=== PATIENT | male | born 1975 | race Caucasian/White ===

== ENCOUNTER 2022-07-16 03:55 | Inpatient (IN) ==
[2022-07-16] MEDS ORDERED: 0.9 % SODIUM CHLORIDE 1,000 ML IV ONE ×2 (04:03→07:39)
[2022-07-16] MEDS ORDERED: KETOROLAC 30 MG/ML VIAL IV ONE (04:08)
[2022-07-16 04:16] LABS: POC Calcium, Ionized 1.09 (1.16-1.32); POC Creatinine 1.3 (0.6-1.2); POC Potassium 3.7 (3.3-5.1)
[2022-07-16 05:10] LABS: Basophils % (Auto) 0.3 % (0.0-2.0); Eosinophils # (Auto) 0 K/mcL (0.00-0.70); Eosinophils % (Auto) 0 % (0.0-7.0); Hematocrit 40.9 % (40.1-51.0); Hemoglobin 13.8 g/dL (13.7-17.5); Lymphocytes % (Auto) 1.4 % (15.5-49.0); Mean Cell Volume 87.4 fL (80.0-100.0); Mean Corpuscular HGB Conc 33.7 g/dL (31.0-36.0); Mean Platelet Volume 10.1 fL (8.8-12.5); Monocytes # (Auto) 1.13 K/mcL (0.10-0.90); Monocytes % (Auto) 3.1 % (1.0-12.0); Neutrophils % (Auto) 93.4 % (38.0-78.0); Platelet Count 276 K/mcL (140-440); RBC 4.68 M/mcL (4.63-6.08); Red Cell Distribution Width 13.8 % (11.5-14.5); WBC 36.7 K/mcL (4.5-11.0)
[2022-07-16] MEDS ORDERED: cefTRIAXone 2 GM in DEXTROSE 5% IN WATER 50 ML IV ONE (05:10)
--- NOTE | 2022-07-16 05:26 | Emergency Department Note ---
Skin/Abscess/FB HPI General Chief complaint: Wound/Laceration Stated complaint: Fever, Cellulitis, penile bleeding Time Seen by Provider: 07/16/22 04:03 Source: patient and EMS Mode of arrival: EMS Limitations: no limitations History of Present Illness HPI Narrative: Narrative: Patient presents ED via EMS with complaints of weakness over the last week. Patient reports that he got bit by a spider left lower extremity turned red and the redness has spread. States it hurts and is warm. He states he been having chills and feeling well. He also states that he started peeing blood yesterday and has not really peed since then. Patient denies nausea, vomiting, hematemesis, melena, hematochezia, dysuria, cardiac chest pain, shortness of breath, hemoptysis. Patient admits to smoking meth regularly with his last intake being a day ago. He states he also smokes marijuana daily with his last usage being a couple hours prior to arrival to the ED. He is also a current every day smoker. Patient is homeless. Patient denies any other alleviating or aggravating factors. Related Data Previous Rx's Medication Instructions Recorded levetiracetam 500 mg tablet 500 mg PO BID #60 tabs 12/03/21 (Keppra) Allergies Allergy/AdvReac Type Severity Reaction Status Date / Time bee venom protein (honey bee) Allergy Anaphylaxis Verified 07/16/22 04:06 titanium Allergy Anaphylaxis Verified 07/16/22 04:06 Review of Systems ROS ROS Narrative: Narrative: All systems ED: reviewed and negative except as stated. [facility] Narrative Patient History Narrative: Narrative: Medical/Surgical/Family History All Active Problems (Updated 07/16/22 @ 06:42 by Jay Rashid DO) Seizure (Acute) Sepsis (Acute) Cellulitis of left leg (Acute) Acute dehydration (Acute) Hematuria (Acute) Social History Smoking Status: Current every day smoker Exam Narrative Narrative: Narrative: General Limitations: no limitations General appearance: Present other (ill appearing); Absent in distress Eye Eye: Present PERRL and EOMI ENT ENT: Present normal oropharynx and mucous membranes dry Neck Neck: Present normal inspection; Absent meningismus Chest Chest: Present normal inspection; Absent tenderness Respiratory Respiratory: Present normal lung sounds bilaterally; Absent respiratory distress Cardiovascular Cardiovascular: Present normal rhythm and tachycardia Adbominal Abdominal: Present soft; Absent tenderness Extremities Extremities: Present normal capillary refill Expanded Lower Extremity Leg image: 1. Erythema, tenderness to palpation, warmth with no obvious fluctuance or discharge Back Back: Present CVA tenderness (R) and CVA tenderness (L) Neurological Neurological: Present alert and oriented X3 Psychiatric Psychiatric: Present normal affect and normal mood Skin Skin: Present warm (WNL) and intact Course Course Course Narrative: Patient was evaluated for complaints of generalized weakness and left lower extremity redness. Physical exam consistent with cellulitis to left lower extremity. There is no fluctuant or drainage appreciable. There is concerns for osteomyelitis on x-rays obtained of the left tib-fib with image reviewed myself with no obvious bony abnormality. Patient was tachycardic, febrile and tachypneic upon arrival. EKG was obtained and shows sinus tachycardia with no signs of ST elevation. Labs were obtained and patient had extremely high white cell count with leukocytosis of 36. Lactic acid was within normal limits. Pro calcitonin is elevated. Patient does meet sepsis criteria with cellulitis, fever, leukocytosis, tachycardia and tachypnea. Patient was bolused IV fluids and given IV Toradol. His temperature improved and his heart rate also improved. Patient also complained of peeing blood she was concerned for possible kidney stone. CT has been obtained and is currently pending. Patient states that he had not peed in 1 day so bladder scan was obtained showed about 250 mL of urine. Patient's urine sample was just ricco blood with clots so hematuria Philippe catheter catheter was placed. After my assessment is a review of labs and x-rays I believe patient should be admitted as he does meet sepsis criteria with ricco hematuria. Patient was initially hesitant to be admitted to the hospital and was considering leaving [facility] [place]. After further discussion patient has agreed to be admitted. Patient will be signed out to Dr. Ruggiero to determine final disposition once CT results come back. Dr. Ruggiero will need to discuss case with urology and hospitalist service. Reevaluation(s) Reevaluation #1: Patient remains hemodynamically stable. No new complaints at this time. Time: 05:10 Vital Signs Vital signs: Vital Signs Temperature 102.9 F H 07/16/22 04:01 Pulse Rate 110 H 07/16/22 04:01 Respiratory Rate 28 H 07/16/22 04:01 Blood Pressure 147/103 07/16/22 04:01 Pulse Oximetry (%) 96 07/16/22 04:01 Oxygen Delivery Method Room Air 07/16/22 04:01 Oxygen Flow Rate (L/min) 0 07/16/22 04:01 Temperature 99.4 F H 07/16/22 06:24 Pulse Rate 108 H 07/16/22 06:24 Respiratory Rate 15 07/16/22 06:24 Blood Pressure 154/101 07/16/22 06:18 Pulse Oximetry (%) 96 07/16/22 06:24 Oxygen Delivery Method Room Air 07/16/22 04:01 Oxygen Flow Rate (L/min) 0 07/16/22 04:01 MDM MDM Narrative Medical decision making narrative: Narrative: Sepsis Sepsis Identified: Yes Time Zero: 05 Differential Diagnosis Differential Diagnosis: Septic, cellulitis, kidney stone Medical Records Medical records reviewed: Yes I reviewed the patient's medical records. Lab Data Lab results reviewed: Yes I reviewed the patient's lab results. 07/16/22 04:20 Labs: Lab Results 07/16/22 07/16/22 07/16/22 Range/Units 04:10 04:10 04:20 WBC 36.7 H* (4.5-11.0) K/mcL RBC 4.68 (4.63-6.08) M/mcL Hgb 13.8 (13.7-17.5) g/dL Hct 40.9 (40.1-51.0) % POC Hct 42.0 (41-55) MCV 87.4 (80.0-100.0) fL MCH 29.5 (26.0-34.0) pg MCHC 33.7 (31.0-36.0) g/dL RDW 13.8 (11.5-14.5) % Plt Count 276 (140-440) K/mcL MPV 10.1 (8.8-12.5) fL Immature Gran % (Auto) 1.8 H (0.0-0.5) % Neut % (Auto) 93.4 H (38.0-78.0) % Lymph % (Auto) 1.4 L (15.5-49.0) % [place] % (Auto) 3.1 (1.0-12.0) % Eos % (Auto) 0 (0.0-7.0) % Baso % (Auto) 0.3 (0.0-2.0) % Lymph # (Auto) 0.50 L (1.50-4.80) K/mcL [place] # (Auto) 1.13 H (0.10-0.90) K/mcL Eos # (Auto) 0 (0.00-0.70) K/mcL Baso # (Auto) 0.10 (0.00-0.30) K/mcL Immature Gran # 0.67 H (0.00-0.05) K/mcl Absolute Neutrophils 34.32 H (1.80-8.00) K/mcL POC VBG pH 7.45 H (7.32-7.42) POC VBG pCO2 at Temp 40.5 L (41-51) POC VBG pO2 23 L (25-40) POC VBG HCO3 28.1 H (24-28) POC VBG Total CO2 29.0 (25-29) POC Venous O2 Sat 42.0 (40-70) POC VBG Base Excess 4.0 H* (-2-2) VBG Lactic Acid 1.8 (0.5-2) POC Sodium 134 (133-145) POC Potassium 3.7 (3.3-5.1) POC Chloride 95 L (96-108) POC Total CO2 27.0 (22-30) POC BUN 21 H (6-20) POC Creatinine 1.3 H (0.6-1.2) POC Glucose 119 H (70-105) POC WB Ioniz Calcium 1.09 L (1.16-1.32) Total Bilirubin (0.1-1.0) mg/dL Direct Bilirubin (<0.3) mg/dL AST (<40) U/L ALT (<40) U/L Alkaline Phosphatase (39-117) U/L Total Protein (5.9-8.4) gm/dL Albumin (3.2-5.2) gm/dL Globulin (2.2-3.7) gm/dL Procalcitonin (<0.10) ng/mL 07/16/22 07/16/22 Range/Units 04:20 04:20 WBC (4.5-11.0) K/mcL RBC (4.63-6.08) M/mcL Hgb (13.7-17.5) g/dL Hct (40.1-51.0) % POC Hct (41-55) MCV (80.0-100.0) fL MCH (26.0-34.0) pg MCHC (31.0-36.0) g/dL RDW (11.5-14.5) % Plt Count (140-440) K/mcL MPV (8.8-12.5) fL Immature Gran % (Auto) (0.0-0.5) % Neut % (Auto) (38.0-78.0) % Lymph % (Auto) (15.5-49.0) % [place] % (Auto) (1.0-12.0) % Eos % (Auto) (0.0-7.0) % Baso % (Auto) (0.0-2.0) % Lymph # (Auto) (1.50-4.80) K/mcL [place] # (Auto) (0.10-0.90) K/mcL Eos # (Auto) (0.00-0.70) K/mcL Baso # (Auto) (0.00-0.30) K/mcL Immature Gran # (0.00-0.05) K/mcl Absolute Neutrophils (1.80-8.00) K/mcL POC VBG pH (7.32-7.42) POC VBG pCO2 at Temp (41-51) POC VBG pO2 (25-40) POC VBG HCO3 (24-28) POC VBG Total CO2 (25-29) POC Venous O2 Sat (40-70) POC VBG Base Excess (-2-2) VBG Lactic Acid (0.5-2) POC Sodium (133-145) POC Potassium (3.3-5.1) POC Chloride (96-108) POC Total CO2 (22-30) POC BUN (6-20) POC Creatinine (0.6-1.2) POC Glucose (70-105) POC WB Ioniz Calcium (1.16-1.32) Total Bilirubin 1.1 H (0.1-1.0) mg/dL Direct Bilirubin 0.2 (<0.3) mg/dL AST 14 (<40) U/L ALT 9 (<40) U/L Alkaline Phosphatase 105 (39-117) U/L Total Protein 7.5 (5.9-8.4) gm/dL Albumin 3.9 (3.2-5.2) gm/dL Globulin 3.6 (2.2-3.7) gm/dL Procalcitonin 0.68 H (<0.10) ng/mL Radiology Data Radiology results reviewed: Yes I reviewed the patient's radiology results. Radiology results narrative: X-ray of the left lower extremity obtained with image reviewed myself with no signs of osteomyelitis EKG Data EKG #1: EKG attestation: Yes I reviewed and interpreted this EKG. EKG shows normal: sinus rhythm Rate: tachycardia Rhythm: PVC's [place]/QRS: normal Heart block present: None ST segment elevation in: None ST segment depression in: None QTc: normal QRS morphology: Present normal Interpretation: no acute changes Core Measures AMI Core Measures Followed: Yes Discharge Plan Patient/Caregiver Discharge Instructions Pt seen by SCOREKEEPER/PA only: No Clinical Impression: Sepsis, Cellulitis of left leg, Acute dehydration, Hematuria Patient Disposition: Still a Patient Condition: Fair Prescriptions: No Action levetiracetam [Keppra] 500 mg tablet 500 mg PO BID Qty: 60 0RF
[2022-07-16 05:30] LABS: ALT/SGPT 9 U/L (<40); AST/SGOT 14 U/L (<40); Albumin 3.9 gm/dL (3.2-5.2); Alkaline Phosphatase 105 U/L (39-117); Bilirubin,Direct 0.2 mg/dL (<0.3); Bilirubin,Total 1.1 mg/dL (0.1-1.0); Globulin 3.6 gm/dL (2.2-3.7)
[2022-07-16 07:12] LABS: Appearance,Urine Cloudy (Clear); Bacteria,Urine 0 /hpf (0); Bilirubin,Urine Negative (Negative); Color,Urine Red; Culture Indicated,Urine No; Glucose,Urine (UA) Negative (Negative); Ketones,Urine Negative (Negative); Leukocyte Esterase,Urine Negative /uL (Negative); Nitrate,Urine Negative (Negative); Protein,Urine 30 mg/dL (Negative); Urine RBC > 100 /hpf (0-3); Urine Squamous Epithelial Cell 1 /hpf (0-4); Urine WBC 6 /hpf (0-4)
--- NOTE | 2022-07-16 07:32 | Emergency Department Note ---
Course Course Course Narrative: The patient is a 47-year-old male with a history of homelessness, methamphetamine abuse, tobacco abuse, and seizures who presents to the ED with gross hematuria found to be septic with left lower extremity cellulitis. Patient believes that he was bitten by a bug about 2 weeks ago and states that over the last 2 and half days he has had progressive redness in the left lower extremity. He also reports fevers and chills. 2 days ago he also developed hematuria and difficulty urinating. He denies any IV drug use and states that he only smokes or snorts his methamphetamines. Last methamphetamine use was a day ago. Temperature elevated to 102.9 and patient tachycardic on arrival. Blood pressures have been elevated. On exam, patient does have a large area of erythema and induration in the left lower extremity concerning for cellulitis. There is purulent appearing drainage from the wound though no areas of fluctuance to indicate an underlying abscess. WBC 36. Prolactin elevated. Lactic acid WNL. Patient given 2 L IV fluids and 2 g Rocephin. Heart rate has improved. A Philippe catheter was placed. UA with greater than 100 RBCs. Urine drug screen positive for marijuana and amphetamines. Creatinine 1.3. BUN 21. Radiographs of the tibia/fibula show no evidence of underlying osteoarthritis. Abdomen/pelvis CT shows left nonobstructive renal calculi and a right adrenal 4 cm adenoma. Case discussed with Dr. Rubin who accept patient for admission. A wound culture was obtained. Patient was given 1750 mg vancomycin IV. Reevaluation(s) Reevaluation #1: Patient denies any abdominal pain. Approximately 250 mL pink urine appreciated in the Philippe bag. Heart rate has come down to 105. Blood pressure 169/96. Time: 08:00 Consultations Consultation #1: Dr. Rubin, hospitalist, accepts patient for admission and request patient be given vancomycin. 1750 mg vancomycin IV ordered. Time: 08:30 Vital Signs Vital signs: Vital Signs Temperature 102.9 F H 07/16/22 04:01 Pulse Rate 110 H 07/16/22 04:01 Respiratory Rate 28 H 07/16/22 04:01 Blood Pressure 147/103 07/16/22 04:01 Pulse Oximetry (%) 96 07/16/22 04:01 Oxygen Delivery Method Room Air 07/16/22 04:01 Oxygen Flow Rate (L/min) 0 07/16/22 04:01 Temperature 99.4 F H 07/16/22 06:24 Pulse Rate 102 H 07/16/22 07:16 Respiratory Rate 29 H 07/16/22 07:16 Blood Pressure 162/102 07/16/22 07:16 Pulse Oximetry (%) 99 07/16/22 07:16 Oxygen Delivery Method Room Air 07/16/22 04:01 Oxygen Flow Rate (L/min) 0 07/16/22 04:01 MDM MDM Narrative Medical decision making narrative: Narrative: Sepsis Sepsis Identified: Yes Time Zero: 0600 Differential Diagnosis Differential Diagnosis: Sepsis, cellulitis, osteomyelitis, ureteral stone, bladder cancer Medical Records Medical records reviewed: Yes I reviewed the patient's medical records. Lab Data Lab results reviewed: Yes I reviewed the patient's lab results. 07/16/22 04:20 Labs: Lab Results 07/16/22 07/16/22 07/16/22 Range/Units 04:10 04:10 04:20 WBC 36.7 H* (4.5-11.0) K/mcL RBC 4.68 (4.63-6.08) M/mcL Hgb 13.8 (13.7-17.5) g/dL Hct 40.9 (40.1-51.0) % POC Hct 42.0 (41-55) MCV 87.4 (80.0-100.0) fL MCH 29.5 (26.0-34.0) pg MCHC 33.7 (31.0-36.0) g/dL RDW 13.8 (11.5-14.5) % Plt Count 276 (140-440) K/mcL MPV 10.1 (8.8-12.5) fL Immature Gran % (Auto) 1.8 H (0.0-0.5) % Neut % (Auto) 93.4 H (38.0-78.0) % Lymph % (Auto) 1.4 L (15.5-49.0) % [place] % (Auto) 3.1 (1.0-12.0) % Eos % (Auto) 0 (0.0-7.0) % Baso % (Auto) 0.3 (0.0-2.0) % Lymph # (Auto) 0.50 L (1.50-4.80) K/mcL [place] # (Auto) 1.13 H (0.10-0.90) K/mcL Eos # (Auto) 0 (0.00-0.70) K/mcL Baso # (Auto) 0.10 (0.00-0.30) K/mcL Immature Gran # 0.67 H (0.00-0.05) K/mcl Absolute Neutrophils 34.32 H (1.80-8.00) K/mcL POC VBG pH 7.45 H (7.32-7.42) POC VBG pCO2 at Temp 40.5 L (41-51) POC VBG pO2 23 L (25-40) POC VBG HCO3 28.1 H (24-28) POC VBG Total CO2 29.0 (25-29) POC Venous O2 Sat 42.0 (40-70) POC VBG Base Excess 4.0 H* (-2-2) VBG Lactic Acid 1.8 (0.5-2) POC Sodium 134 (133-145) POC Potassium 3.7 (3.3-5.1) POC Chloride 95 L (96-108) POC Total CO2 27.0 (22-30) POC BUN 21 H (6-20) POC Creatinine 1.3 H (0.6-1.2) POC Glucose 119 H (70-105) POC WB Ioniz Calcium 1.09 L (1.16-1.32) Total Bilirubin (0.1-1.0) mg/dL Direct Bilirubin (<0.3) mg/dL AST (<40) U/L ALT (<40) U/L Alkaline Phosphatase (39-117) U/L Total Protein (5.9-8.4) gm/dL Albumin (3.2-5.2) gm/dL Globulin (2.2-3.7) gm/dL Procalcitonin (<0.10) ng/mL Urine Color Urine Appearance (Clear) Urine pH (5.0-9.0) Ur Specific [place] (1.000-1.035) Urine Protein (Negative) mg/dL Urine Glucose (UA) (Negative) mg/dL Urine Ketones (Negative) mg/dL Urine Occult Blood (Negative) mg/dL Urine Nitrate (Negative) Urine Bilirubin (Negative) mg/dL Urine Urobilinogen mg/dL Ur Leukocyte Esterase (Negative) /uL Urine RBC (0-3) /hpf Urine WBC (0-4) /hpf Ur Squamous Epith Cells (0-4) /hpf Urine Bacteria (0) /hpf Ur Culture Indicated? Urine Opiates Screen Ur Opiates Confirm Ur Oxycodone Screen U Oxycod/Oxymor Confirm Urine Methadone Screen Ur Methadone Confirm Ur Barbiturates Screen Ur Barbiturate Confirm Ur Phencyclidine Scrn Urine PCP Confirm Ur Amphetamines Screen U Benzodiazepines Scrn Ur Benzodiazepine, Qnt Urine Cocaine Screen Urine Cocaine Confirm U Marijuana (THC) Screen 07/16/22 07/16/22 07/16/22 Range/Units 04:20 04:20 06:07 WBC (4.5-11.0) K/mcL RBC (4.63-6.08) M/mcL Hgb (13.7-17.5) g/dL Hct (40.1-51.0) % POC Hct (41-55) MCV (80.0-100.0) fL MCH (26.0-34.0) pg MCHC (31.0-36.0) g/dL RDW (11.5-14.5) % Plt Count (140-440) K/mcL MPV (8.8-12.5) fL Immature Gran % (Auto) (0.0-0.5) % Neut % (Auto) (38.0-78.0) % Lymph % (Auto) (15.5-49.0) % [place] % (Auto) (1.0-12.0) % Eos % (Auto) (0.0-7.0) % Baso % (Auto) (0.0-2.0) % Lymph # (Auto) (1.50-4.80) K/mcL [place] # (Auto) (0.10-0.90) K/mcL Eos # (Auto) (0.00-0.70) K/mcL Baso # (Auto) (0.00-0.30) K/mcL Immature Gran # (0.00-0.05) K/mcl Absolute Neutrophils (1.80-8.00) K/mcL POC VBG pH (7.32-7.42) POC VBG pCO2 at Temp (41-51) POC VBG pO2 (25-40) POC VBG HCO3 (24-28) POC VBG Total CO2 (25-29) POC Venous O2 Sat (40-70) POC VBG Base Excess (-2-2) VBG Lactic Acid (0.5-2) POC Sodium (133-145) POC Potassium (3.3-5.1) POC Chloride (96-108) POC Total CO2 (22-30) POC BUN (6-20) POC Creatinine (0.6-1.2) POC Glucose (70-105) POC WB Ioniz Calcium (1.16-1.32) Total Bilirubin 1.1 H (0.1-1.0) mg/dL Direct Bilirubin 0.2 (<0.3) mg/dL AST 14 (<40) U/L ALT 9 (<40) U/L Alkaline Phosphatase 105 (39-117) U/L Total Protein 7.5 (5.9-8.4) gm/dL Albumin 3.9 (3.2-5.2) gm/dL Globulin 3.6 (2.2-3.7) gm/dL Procalcitonin 0.68 H (<0.10) ng/mL Urine Color Red Urine Appearance Cloudy A (Clear) Urine pH 7.0 (5.0-9.0) Ur Specific [place] 1.020 (1.000-1.035) Urine Protein 30 A (Negative) mg/dL Urine Glucose (UA) Negative (Negative) mg/dL Urine Ketones Negative (Negative) mg/dL Urine Occult Blood 0.20 (Negative) mg/dL Urine Nitrate Negative (Negative) Urine Bilirubin Negative (Negative) mg/dL Urine Urobilinogen 2.0 A mg/dL Ur Leukocyte Esterase Negative (Negative) /uL Urine RBC > 100 H (0-3) /hpf Urine WBC 6 H (0-4) /hpf Ur Squamous Epith Cells 1 (0-4) /hpf Urine Bacteria 0 (0) /hpf Ur Culture Indicated? No Urine Opiates Screen Ur Opiates Confirm Ur Oxycodone Screen U Oxycod/Oxymor Confirm Urine Methadone Screen Ur Methadone Confirm Ur Barbiturates Screen Ur Barbiturate Confirm Ur Phencyclidine Scrn Urine PCP Confirm Ur Amphetamines Screen U Benzodiazepines Scrn Ur Benzodiazepine, Qnt Urine Cocaine Screen Urine Cocaine Confirm U Marijuana (THC) Screen 07/16/22 Range/Units 06:08 WBC (4.5-11.0) K/mcL RBC (4.63-6.08) M/mcL Hgb (13.7-17.5) g/dL Hct (40.1-51.0) % POC Hct (41-55) MCV (80.0-100.0) fL MCH (26.0-34.0) pg MCHC (31.0-36.0) g/dL RDW (11.5-14.5) % Plt Count (140-440) K/mcL MPV (8.8-12.5) fL Immature Gran % (Auto) (0.0-0.5) % Neut % (Auto) (38.0-78.0) % Lymph % (Auto) (15.5-49.0) % [place] % (Auto) (1.0-12.0) % Eos % (Auto) (0.0-7.0) % Baso % (Auto) (0.0-2.0) % Lymph # (Auto) (1.50-4.80) K/mcL [place] # (Auto) (0.10-0.90) K/mcL Eos # (Auto) (0.00-0.70) K/mcL Baso # (Auto) (0.00-0.30) K/mcL Immature Gran # (0.00-0.05) K/mcl Absolute Neutrophils (1.80-8.00) K/mcL POC VBG pH (7.32-7.42) POC VBG pCO2 at Temp (41-51) POC VBG pO2 (25-40) POC VBG HCO3 (24-28) POC VBG Total CO2 (25-29) POC Venous O2 Sat (40-70) POC VBG Base Excess (-2-2) VBG Lactic Acid (0.5-2) POC Sodium (133-145) POC Potassium (3.3-5.1) POC Chloride (96-108) POC Total CO2 (22-30) POC BUN (6-20) POC Creatinine (0.6-1.2) POC Glucose (70-105) POC WB Ioniz Calcium (1.16-1.32) Total Bilirubin (0.1-1.0) mg/dL Direct Bilirubin (<0.3) mg/dL AST (<40) U/L ALT (<40) U/L Alkaline Phosphatase (39-117) U/L Total Protein (5.9-8.4) gm/dL Albumin (3.2-5.2) gm/dL Globulin (2.2-3.7) gm/dL Procalcitonin (<0.10) ng/mL Urine Color Urine Appearance (Clear) Urine pH (5.0-9.0) Ur Specific [place] (1.000-1.035) Urine Protein (Negative) mg/dL Urine Glucose (UA) (Negative) mg/dL Urine Ketones (Negative) mg/dL Urine Occult Blood (Negative) mg/dL Urine Nitrate (Negative) Urine Bilirubin (Negative) mg/dL Urine Urobilinogen mg/dL Ur Leukocyte Esterase (Negative) /uL Urine RBC (0-3) /hpf Urine WBC (0-4) /hpf Ur Squamous Epith Cells (0-4) /hpf Urine Bacteria (0) /hpf Ur Culture Indicated? Urine Opiates Screen None detected Ur Opiates Confirm TNP Ur Oxycodone Screen None detected U Oxycod/Oxymor Confirm TNP Urine Methadone Screen None detected Ur Methadone Confirm TNP Ur Barbiturates Screen None detected Ur Barbiturate Confirm TNP Ur Phencyclidine Scrn None detected Urine PCP Confirm TNP Ur Amphetamines Screen Suspect positive A U Benzodiazepines Scrn None detected Ur Benzodiazepine, Qnt TNP Urine Cocaine Screen None detected Urine Cocaine Confirm TNP U Marijuana (THC) Screen Suspect positive A Radiology Data Radiology results reviewed: Yes I reviewed the patient's radiology results. Radiology results narrative: Left tib-fib radiographs show no evidence of osteomyelitis. CT abdomen/pelvis without IV contrast shows nonobstructive left renal calculi and a right adrenal 4 cm adenoma. Core Measures AMI Core Measures Followed: Yes ([place] body weight used for fluid bolus for sepsis) Discharge Plan Patient/Caregiver Discharge Instructions Pt seen by LICENSED CLINICAL PSYCHOLOGIST/PA only: No Clinical Impression: Sepsis, Cellulitis of left leg, Acute dehydration, Hematuria Patient Disposition: Xfer As Inpt ([facility]) Condition: Fair Prescriptions: No Action levetiracetam [Keppra] 500 mg tablet 500 mg PO BID Qty: 60 0RF
[2022-07-16 07:36] LABS: Amphetamine Screen,Urine Suspect positive; Barbiturate Screen,Urine None detected; Benzodiazepines Screen,Urine None detected; Cannabinoid Screen,Urine Suspect Positive; Cocaine Screen,Urine None detected; Opiate Screen,Urine None detected; Oxycodone, Urine Screen None detected; Phencyclidine Screen,Urine None detected
--- NOTE | 2022-07-16 08:07 | XRay Report ---
HISTORY: Left leg cellulitis FINDINGS: There is mild generalized subcutaneous edema throughout the leg. There are few phleboliths in the carter and there are arterial calcifications in the arteries and the mid calf. The bones are normally mineralized. There is no evidence of osteomyelitis. No fracture or destructive bone lesion are present. The knee and ankle joints are normal. IMPRESSION: Soft tissue inflammation and no bone lesion Interpreted and Authenticated by: Laurent Steele 07/16/22
--- NOTE | 2022-07-16 08:18 | Cat Scan Report ---
History: Hematuria and fever left leg cellulitis TECHNIQUE: The abdomen was imaged without contrast in axial plane at 2.5 mm intervals from above the diaphragm through the symphysis pubis. Sagittal and coronal reformats were created. The radiation exposure was limited using dose reduction technology. FINDINGS: There is a band of dependent atelectasis posteriorly in the right lung base. Evaluation of the abdominal organs without contrast is somewhat limited. The liver is normal in size and homogeneous. There may be mild fatty infiltration. The gallbladder is absent. Bile ducts are nondilated. Spleen is normal in size and contains a couple small calcified granulomata. No abnormality is detected in the pancreas. There is a well-circumscribed 3.4 x 4.3 cm lipid-containing mass in the right adrenal. This is probably a myelolipoma. The left adrenal is normal. The right kidney is normal in size shape and contour. There are three nonobstructing calyceal stones in the left kidney. The largest is in the middle one third and measures 3.5 x 9.5 mm. No hydronephrosis is present in either kidney. There is a focal area of stranding of the perirenal fat along the lateral margin of the lower pole of the left kidney. The underlying parenchyma appears normal on this nonenhanced study. Milder and more ill-defined perinephric stranding is seen laterally adjacent to the lower third of the right kidney. No perinephric hematoma is present. Ureters are decompressed. Urinary bladder is only partially filled and appears normal. Moderate amount of atherosclerotic plaque is present along the wall of normal caliber abdominal aorta and iliac arteries. This is greater than one normally sees in a 47-year-old. The bowel pattern is normal. Appendix is noninflamed. No adenopathy or ascites are present. Severe disc space narrowing is present at L3-4 and L4-5 and there is moderately severe narrowing at L5-S1. 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 Mild spinal canal stenosis is present at L3-4 and L4-5. IMPRESSION: Three nonobstructing stones in the left kidney. Perinephric stranding around both kidneys. This is nonspecific and may be chronic scar or focal inflammation. 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
[2022-07-16] MEDS ORDERED: VANCOMYCIN 1,750 MG in 0.9 % SODIUM CHLORIDE 500 ML IV ONE (08:31)
--- NOTE | 2022-07-16 11:11 | Internal Med History&Physical ---
HPI History of Present Illness Patient information: Note initiated : 07/16/22 at 11:00 am Service Date, if different from initiated Date: [] Patient: Jabier Hubbard a 47 y/o M admitted on 07/16/22 for Fever, Cellulitis, penile bleeding. Chief Complaint: [] History of present illness: Mr. Hubbard is a 47 year old M Here with left leg redness and swelling. fever and hematuria concerned he may have kidney stones. Patient recently moved down from [place] to help with his daughter's probation. 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 His girlfriend told him he had to make a decision between her and her family and his daughter so he decided to stay in [place]. Patient states about 3 weeks ago he received a spider bite to the left lateral lower leg. He said it was improving however he says he noticed that after he went to the [facility] health and welfare office to get food stamps and when he came home sometime he noticed that he was increasingly red and swollen and painful. He also complains of productive cough of thick yellow sputum over the past 2 to 3 days. Has a chronic cough no change. He is also complained of fevers and chills and nausea but no vomiting. Patient has not been on his blood pressure medications or Keppra for the past 3 months because he ran out and does not have a primary care doctor anymore Patient uses methamphetamine, smokes and denies IV use. Says it helps with his chronic pain. In the ED he was evaluated in the did not appear to be any fluctuance or drainage, abscess. X-ray showed no osteo. Patient was tachycardic and tachypneic and febrile. CT abdomen pelvis showed nonobstructing kidney stones on the left. Showed some perinephric stranding around both kidneys that was nonspecific with a differential of chronic scar versus inflammation. Patient does not have any flank pain and UA unconcerning for infection. In the ED they placed a Philippe and immediately received blood and blood clots into the bag which is now clearing up. Procalcitonin elevated at 0.7 Patient started on Vanco and Rocephin in the ED. Review of Systems: Pertinent positive as above. Denies headache/fever/chills/nausea/vomiting/chest or abdominal pain/cough/dyspnea/diarrhea. Remaining 10 point review of system reviewed negative PHYSICAL EXAM General: Alert, Awake, No acute Distress, obese Eyes/N/T: EOMI, no scleral icterus, PERRL, MM Head/Neck: neck supple, full ROM, normocephalic atraumatic CV: RRR, No murmurs, normal s1/s2 Pulm: Clear b/l, no wheezing/rhonchi/rales, no respiratory distress Abd: soft, nontender, +BS x4 Ext: no clubbing/cyanosis/edema to RLE, LLE with erythema/edema/TTP around Neuro: Alert, CN 2-12 grossly intact, no focal deficits, moves all extremities, , sensations intact b/l upper/lower Psychiatric: Skin: warm/dry, normal color PFSH PFSH All Active Problems (Updated 07/16/22 @ 06:42 by Jay Rashid DO) Seizure (Acute) Sepsis (Acute) Cellulitis of left leg (Acute) Acute dehydration (Acute) Hematuria (Acute) Social History smoking status: Current every day smoker MEDS/ALLERGIES Home Medications and Allergies Home Medications Medication Instructions Recorded Confirmed Type amlodipine 5 mg tablet 5 mg PO QDAY 07/16/22 07/16/22 History levetiracetam 750 mg tablet 1,500 mg PO BID 07/16/22 07/16/22 History lisinopril 10 mg tablet 10 mg PO QDAY 07/16/22 07/16/22 History Allergies Allergy/AdvReac Type Severity Reaction Status Date / Time bee venom protein (honey bee) Allergy Anaphylaxis Verified 07/16/22 04:06 titanium Allergy Anaphylaxis Verified 07/16/22 04:06 EXAM Constitutional Vitals: Temp Pulse Resp BP Pulse Ox O2 Del Method O2 Flow Rate 99.4 F H 110 H 21 171/106 94 Room Air 0 07/16/22 10:53 07/16/22 10:53 07/16/22 10:53 07/16/22 10:53 07/16/22 10:53 07/16/22 04:01 07/16/22 04:01 DATA Data Completed and Pending Labs: Labs from last 24 hours 07/16/22 07/16/22 07/16/22 06:08 06:07 04:20 WBC RBC Hgb Hct POC Hct MCV MCH MCHC RDW Plt Count MPV Immature Gran % (Auto) Neut % (Auto) Lymph % (Auto) Murray % (Auto) Eos % (Auto) Baso % (Auto) Lymph # (Auto) Murray # (Auto) Eos # (Auto) Baso # (Auto) Immature Gran # Absolute Neutrophils POC VBG pH POC VBG pCO2 at Temp POC VBG pO2 POC VBG HCO3 POC VBG Total CO2 POC Venous O2 Sat POC VBG Base Excess VBG Lactic Acid POC Sodium POC Potassium POC Chloride POC Total CO2 POC BUN POC Creatinine POC Glucose POC WB Ioniz Calcium Total Bilirubin Direct Bilirubin AST ALT Alkaline Phosphatase Total Protein Albumin Globulin Procalcitonin 0.68 H Urine Color Red Urine Appearance Cloudy A Urine pH 7.0 Ur Specific [place] 1.020 Urine Protein 30 A Urine Glucose (UA) Negative Urine Ketones Negative Urine Occult Blood 0.20 Urine Nitrate Negative Urine Bilirubin Negative Urine Urobilinogen 2.0 A Ur Leukocyte Esterase Negative Urine RBC > 100 H Urine WBC 6 H Ur Squamous Epith Cells 1 Urine Bacteria 0 Ur Culture Indicated? No Urine Opiates Screen None detected Ur Opiates Confirm TNP Ur Oxycodone Screen None detected U Oxycod/Oxymor Confirm TNP Urine Methadone Screen None detected Ur Methadone Confirm TNP Ur Barbiturates Screen None detected Ur Barbiturate Confirm TNP Ur Phencyclidine Scrn None detected Urine PCP Confirm TNP Ur Amphetamines Screen Suspect positive A U Amphetamines Confirm Pending U Benzodiazepines Scrn None detected Ur Benzodiazepine, Qnt TNP Urine Cocaine Screen None detected Urine Cocaine Confirm TNP U Cannabinoids Confirm Pending U Marijuana (THC) Screen Suspect positive A 07/16/22 07/16/22 07/16/22 04:20 04:20 04:10 WBC 36.7 H* RBC 4.68 Hgb 13.8 Hct 40.9 POC Hct 42.0 MCV 87.4 MCH 29.5 MCHC 33.7 RDW 13.8 Plt Count 276 MPV 10.1 Immature Gran % (Auto) 1.8 H Neut % (Auto) 93.4 H Lymph % (Auto) 1.4 L Murray % (Auto) 3.1 Eos % (Auto) 0 Baso % (Auto) 0.3 Lymph # (Auto) 0.50 L Murray # (Auto) 1.13 H Eos # (Auto) 0 Baso # (Auto) 0.10 Immature Gran # 0.67 H Absolute Neutrophils 34.32 H POC VBG pH POC VBG pCO2 at Temp POC VBG pO2 POC VBG HCO3 POC VBG Total CO2 POC Venous O2 Sat POC VBG Base Excess VBG Lactic Acid POC Sodium 134 POC Potassium 3.7 POC Chloride 95 L POC Total CO2 27.0 POC BUN 21 H POC Creatinine 1.3 H POC Glucose 119 H POC WB Ioniz Calcium 1.09 L Total Bilirubin 1.1 H Direct Bilirubin 0.2 AST 14 ALT 9 Alkaline Phosphatase 105 Total Protein 7.5 Albumin 3.9 Globulin 3.6 Procalcitonin Urine Color Urine Appearance Urine pH Ur Specific [place] Urine Protein Urine Glucose (UA) Urine Ketones Urine Occult Blood Urine Nitrate Urine Bilirubin Urine Urobilinogen Ur Leukocyte Esterase Urine RBC Urine WBC Ur Squamous Epith Cells Urine Bacteria Ur Culture Indicated? Urine Opiates Screen Ur Opiates Confirm Ur Oxycodone Screen U Oxycod/Oxymor Confirm Urine Methadone Screen Ur Methadone Confirm Ur Barbiturates Screen Ur Barbiturate Confirm Ur Phencyclidine Scrn Urine PCP Confirm Ur Amphetamines Screen U Amphetamines Confirm U Benzodiazepines Scrn Ur Benzodiazepine, Qnt Urine Cocaine Screen Urine Cocaine Confirm U Cannabinoids Confirm U Marijuana (THC) Screen 07/16/22 04:10 WBC RBC Hgb Hct POC Hct MCV MCH MCHC RDW Plt Count MPV Immature Gran % (Auto) Neut % (Auto) Lymph % (Auto) Murray % (Auto) Eos % (Auto) Baso % (Auto) Lymph # (Auto) Murray # (Auto) Eos # (Auto) Baso # (Auto) Immature Gran # Absolute Neutrophils POC VBG pH 7.45 H POC VBG pCO2 at Temp 40.5 L POC VBG pO2 23 L POC VBG HCO3 28.1 H POC VBG Total CO2 29.0 POC Venous O2 Sat 42.0 POC VBG Base Excess 4.0 H* VBG Lactic Acid 1.8 POC Sodium POC Potassium POC Chloride POC Total CO2 POC BUN POC Creatinine POC Glucose POC WB Ioniz Calcium Total Bilirubin Direct Bilirubin AST ALT Alkaline Phosphatase Total Protein Albumin Globulin Procalcitonin Urine Color Urine Appearance Urine pH Ur Specific [place] Urine Protein Urine Glucose (UA) Urine Ketones Urine Occult Blood Urine Nitrate Urine Bilirubin Urine Urobilinogen Ur Leukocyte Esterase Urine RBC Urine WBC Ur Squamous Epith Cells Urine Bacteria Ur Culture Indicated? Urine Opiates Screen Ur Opiates Confirm Ur Oxycodone Screen U Oxycod/Oxymor Confirm Urine Methadone Screen Ur Methadone Confirm Ur Barbiturates Screen Ur Barbiturate Confirm Ur Phencyclidine Scrn Urine PCP Confirm Ur Amphetamines Screen U Amphetamines Confirm U Benzodiazepines Scrn Ur Benzodiazepine, Qnt Urine Cocaine Screen Urine Cocaine Confirm U Cannabinoids Confirm U Marijuana (THC) Screen A/P Narrative A/P Narrative: A: *LLE cellulitis: *Sepsis: 2/2 above -Febrile/leukocytosis/tachypnea/tachycardia *ELISE: *Gross hematuria: 2/2 kidney stones likely *HTN: Elevated on admit. Has been off his amlodipine and lisinopril for 3 months *Substance abuse (Meth): *Tobacco abuse: *Sz d/o: on keppra, continue *Obesity: BMI 36, lifestyle modifications *Homeless: *Chronic back pain: P: -IV Vanc/Rocephin, pending BC/WC, pending mrsa screen -Outline cellulitis area to monitor -IVF -Monitor renal function/UOP -Monitor hematuria and H&H -Continue home Norvasc, hold Lisinopril for elise, prn IV meds -Obtain chest x-ray for new productive cough - -Smoking cessation counseling >3 minutes -Substance abuse cessation counseling -CM for placement needs -ppx: SCDs (hold chemical given hematuria) Time Spent With Patient Time: Total time spent is greater than 50% in coordination of care (as documented) at patient's floor/unit and/or counseling patient: Initial: Total time with patient: 75 - 90 minutes QUALITY Stroke Symptom Onset Unknown: No
[2022-07-16] MEDS ORDERED: LABETALOL 5 MG/ML ML IV PRN (11:33)
[2022-07-16] MEDS ORDERED: POLYETHYLENE GLYCOL 3350 17 GM PACKET PO PRN (11:34)
[2022-07-16] MEDS ORDERED: POTASSIUM CHLORIDE 20 MEQ TABLET PO PRN ×2 (11:34)
[2022-07-16] MEDS ORDERED: MAGNESIUM SULFATE 2 GM/50 ML BAG IV PRN (11:34)
[2022-07-16] MEDS ORDERED: IPRATROPIUM/ALBUTEROL 3 ML AMPUL.NEB NEB PRN (11:34)
[2022-07-16] MEDS ORDERED: SENNOSIDES 1 TABLET PO PRN (11:34)
[2022-07-16] MEDS ORDERED: POTASSIUM CHLORIDE 40 MEQ in DEXTROSE 5% IN WATER 500 ML IV PRN (11:34)
[2022-07-16] MEDS ORDERED: ACETAMINOPHEN 325 MG TABLET PO PRN (11:34)
[2022-07-16] MEDS ORDERED: levETIRAcetam 500 MG TABLET PO SCH (12:00)
[2022-07-16] MEDS: amLODIPine 5 MG TABLET PO SCH (12:07)
[2022-07-16] MEDS: CLINDAMYCIN IN 0.9 % SOD CHLOR 600 MG/50 ML BAG IV SCH ×2 (12:07→21:32)
[2022-07-16] MEDS: 0.9 % SODIUM CHLORIDE 1,000 ML IV SCH ×2 (12:10→23:24)
[2022-07-16] MEDS: ONDANSETRON 4 MG/2 ML VIAL IV PRN (12:48)
[2022-07-16] MEDS: morphine 4 MG/ML VIAL IV PRN (12:48)
[2022-07-16] MEDS: 0.9 % SODIUM CHLORIDE 10 ML SYRINGE IV SCH ×2 (13:45→21:23)
[2022-07-16] MEDS: hydrALAZINE 20 MG/ML VIAL IV PRN (15:44)
--- NOTE | 2022-07-16 15:50 | XRay Report ---
HISTORY: Fever, new productive cough FINDINGS: The lungs are clear and well expanded without evidence of pneumonia. On the PA view there are symmetric prominent nipple shadows overlying the lower thorax. The heart size, pulmonary vasculature, mediastinum, prabhakar, pleura and bones are normal. IMPRESSION: Normal chest. Interpreted and Authenticated by: Laurent Steele 07/16/22
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
[2022-07-16] MEDS: HYDROcodone/APAP 5/325MG TABLET PO PRN (19:24)
[2022-07-16] MEDS: levETIRAcetam 500 MG TABLET PO SCH (21:22)
[2022-07-16] MEDS: DOCUSATE SODIUM 100 MG CAPSULE PO SCH (21:23)
[2022-07-17] MEDS: CLINDAMYCIN IN 0.9 % SOD CHLOR 600 MG/50 ML BAG IV SCH (05:37)
[2022-07-17] MEDS: 0.9 % SODIUM CHLORIDE 10 ML SYRINGE IV SCH ×3 (05:38→20:25)
[2022-07-17 06:31] LABS: Basophils # (Auto) 0.06 K/mcL (0.00-0.30); Basophils % (Auto) 0.3 % (0.0-2.0); Eosinophils # (Auto) 0.02 K/mcL (0.00-0.70); Eosinophils % (Auto) 0.1 % (0.0-7.0); Hemoglobin 12.6 g/dL (13.7-17.5); Lymphocytes # (Auto) 0.83 K/mcL (1.50-4.80); Mean Cell Volume 90.7 fL (80.0-100.0); Mean Corpuscular HGB Conc 33.2 g/dL (31.0-36.0); Mean Platelet Volume 10.4 fL (8.8-12.5); Monocytes # (Auto) 0.75 K/mcL (0.10-0.90); Monocytes % (Auto) 3.6 % (1.0-12.0); Neutrophils % (Auto) 90.9 % (38.0-78.0); Platelet Count 201 K/mcL (140-440); RBC 4.19 M/mcL (4.63-6.08); Red Cell Distribution Width 14.2 % (11.5-14.5); WBC 20.7 K/mcL (4.5-11.0)
[2022-07-17 06:40] LABS: ALT/SGPT 9 U/L (<40); AST/SGOT 11 U/L (<40); Albumin 3.2 gm/dL (3.2-5.2); Alkaline Phosphatase 92 U/L (39-117); Bilirubin,Direct 0.4 mg/dL (<0.3); Bilirubin,Total 0.9 mg/dL (0.1-1.0); Blood Urea Nitrogen 24 mg/dL (6-20); Calcium 8.2 mg/dL (8.6-10.4); Carbon Dioxide 24 mmol/L (22-30); Chloride 93 mmol/L (96-108); Globulin 3.3 gm/dL (2.2-3.7); Glomerular Filtration Rate 65; Glucose 91 mg/dL (70-105); Lactate Dehydrogenase 152 U/L (135-225); Phosphorous 1.9 mg/dL (2.5-4.5); Triglycerides 51 mg/dL (<150); Uric Acid 7.1 mg/dL (2.5-8.0)
[2022-07-17] MEDS ORDERED: NEUTRA PHOS 1 PACKET PO SCH (07:34)
--- NOTE | 2022-07-17 07:38 | Internal Med Progress Note ---
SUBJECTIVE Subjective Patient information: Note initiated : 07/17/22 at 7:28 am Service Date, if different from initiated Date: [] Patient: Jabier Hubbard a 47 y/o M admitted on 07/16/22 for Fever, Cellulitis, penile bleeding. Chief Complaint: [] Interval history: History of present illness: Mr. Hubbard is a 47 year old M Here with left leg redness and swelling. fever and hematuria concerned he may have kidney stones. Patient recently moved down from [place] to help with his daughter's probation. 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 His girlfriend told him he had to make a decision between her and her family and his daughter so he decided to stay in [place]. Patient states about 3 weeks ago he received a spider bite to the left lateral lower leg. He said it was improving however he says he noticed that after he went to the [facility] health and welfare office to get food stamps and when he came home sometime he noticed that he was increasingly red and swollen and painful. He also complains of productive cough of thick yellow sputum over the past 2 to 3 days. Has a chronic cough no change. He is also complained of fevers and chills and nausea but no vomiting. Patient has not been on his blood pressure medications or Keppra for the past 3 months because he ran out and does not have a primary care doctor anymore Patient uses methamphetamine, smokes and denies IV use. Says it helps with his chronic pain. In the ED he was evaluated in the did not appear to be any fluctuance or drainage, abscess. X-ray showed no osteo. Patient was tachycardic and tachypneic and febrile. CT abdomen pelvis showed nonobstructing kidney stones on the left. Showed some perinephric stranding around both kidneys that was nonspecific with a differential of chronic scar versus inflammation. Patient does not have any flank pain and UA unconcerning for infection. In the ED they placed a Philippe and immediately received blood and blood clots into the bag which is now clearing up. Procalcitonin elevated at 0.7 Patient started on Vanco and Rocephin in the ED. 07/17 Patient drowsy. Complaining of back pain and leg pain. One of the blood cultures are positive for gram-positive cocci in clusters in anaerobic bottle of set. Leukocytosis still high but improving. Hyponatremia present. BUN and creatinine 24/1.3. Hypophosphatemia and hypomagnesemia. will try heat pad for back. Review of Systems: Pertinent positive as above. Denies headache/fever/chills/nausea/vomiting/chest or abdominal pain/cough/dyspnea/diarrhea. PHYSICAL EXAM General: Awake, No acute Distress, obese Eyes/N/T: EOMI, no scleral icterus, Head/Neck: neck supple, full ROM, CV: RRR, 2/6SM, Pulm: Clear b/l, no wheezing/rhonchi/rales, no respiratory distress Abd: soft, nontender, +BS x4 Ext: no clubbing/cyanosis/edema to RLE, LLE witherythema/edema/TTP around lower lateral leg circumferentially - no real change Neuro: drowsy, no focal deficits, moves all extremities, , sensations intact b/l upper/lower Psychiatric: Skin: warm/dry, normal color Constitutional Vitals: Vital Signs Temp Pulse Resp BP Pulse Ox O2 Del Method O2 Flow Rate 99.1 F H 91 H 20 129/87 95 Room Air 0 07/17/22 03:50 07/17/22 03:50 07/17/22 03:50 07/17/22 03:50 07/17/22 03:50 07/17/22 03:50 07/16/22 04:01 Period Temp Pulse Resp BP Sys/Long Pulse Ox O2 Del Method O2 Flow Rate Last 24 Hr 99.0 F-100.9 F 91-110 18-30 129-174/81-108 94-99 Room Air-Room Air Intake and Output 07/16/22 07/17/22 07/17/22 19:59 03:59 11:59 Intake Total 650 1530 50 Output Total 200 525 Balance 450 1005 50 Weight 118.898 kg Intake & Output: Intake & Output 07/16/22 07/17/22 07/17/22 19:59 03:59 11:59 Intake Total 650 1530 50 Output Total 200 525 Balance 450 1005 50 Weight 118.898 kg Intake: IV 50 1050 50 Sodium Chloride 0.9% 1,000 ml @ 1000 100 mls/hr IV .Q10H [facility] Rx#: [id number] Oral 600 480 Output: Urine Catheter Amount 200 525 Other: Urine Appearance Clear Uretheral (Philippe) Clear Urine Color Dark Nahomy Uretheral (Philippe) Dark Yellow OBJ DATA Labs 07/17/22 05:25 07/17/22 05:25 Labs: Abnormal Lab Results 07/17/22 07/17/22 07/17/22 05:25 05:25 05:25 WBC 20.7 H RBC 4.19 L Hgb 12.6 L Hct 38.0 L Immature Gran % (Auto) 1.1 H Neut % (Auto) 90.9 H Lymph % (Auto) 4.0 L Lymph # (Auto) 0.83 L [place] # (Auto) Immature Gran # 0.23 H Absolute Neutrophils 18.82 H POC VBG pH POC VBG pCO2 at Temp POC VBG pO2 POC VBG HCO3 POC VBG Base Excess Sodium 127 L POC Chloride Chloride 93 L POC BUN BUN 24 H Creatinine 1.3 H POC Creatinine POC Glucose Calcium 8.2 L POC WB Ioniz Calcium Phosphorus 1.9 L Magnesium 1.4 L Total Bilirubin Direct Bilirubin 0.4 H Procalcitonin 1.10 H Urine Appearance Urine Protein Urine Urobilinogen Urine RBC Urine WBC Ur Amphetamines Screen U Marijuana (THC) Screen 07/16/22 07/16/22 07/16/22 06:08 06:07 04:20 WBC RBC Hgb Hct Immature Gran % (Auto) Neut % (Auto) Lymph % (Auto) Lymph # (Auto) [place] # (Auto) Immature Gran # Absolute Neutrophils POC VBG pH POC VBG pCO2 at Temp POC VBG pO2 POC VBG HCO3 POC VBG Base Excess Sodium POC Chloride Chloride POC BUN BUN Creatinine POC Creatinine POC Glucose Calcium POC WB Ioniz Calcium Phosphorus Magnesium Total Bilirubin Direct Bilirubin Procalcitonin 0.68 H Urine Appearance Cloudy A Urine Protein 30 A Urine Urobilinogen 2.0 A Urine RBC > 100 H Urine WBC 6 H Ur Amphetamines Screen Suspect positive A U Marijuana (THC) Screen Suspect positive A 07/16/22 07/16/22 07/16/22 04:20 04:20 04:10 WBC 36.7 H* RBC Hgb Hct Immature Gran % (Auto) 1.8 H Neut % (Auto) 93.4 H Lymph % (Auto) 1.4 L Lymph # (Auto) 0.50 L [place] # (Auto) 1.13 H Immature Gran # 0.67 H Absolute Neutrophils 34.32 H POC VBG pH POC VBG pCO2 at Temp POC VBG pO2 POC VBG HCO3 POC VBG Base Excess Sodium POC Chloride 95 L Chloride POC BUN 21 H BUN Creatinine POC Creatinine 1.3 H POC Glucose 119 H Calcium POC WB Ioniz Calcium 1.09 L Phosphorus Magnesium Total Bilirubin 1.1 H Direct Bilirubin Procalcitonin Urine Appearance Urine Protein Urine Urobilinogen Urine RBC Urine WBC Ur Amphetamines Screen U Marijuana (THC) Screen 07/16/22 04:10 WBC RBC Hgb Hct Immature Gran % (Auto) Neut % (Auto) Lymph % (Auto) Lymph # (Auto) [place] # (Auto) Immature Gran # Absolute Neutrophils POC VBG pH 7.45 H POC VBG pCO2 at Temp 40.5 L POC VBG pO2 23 L POC VBG HCO3 28.1 H POC VBG Base Excess 4.0 H* Sodium POC Chloride Chloride POC BUN BUN Creatinine POC Creatinine POC Glucose Calcium POC WB Ioniz Calcium Phosphorus Magnesium Total Bilirubin Direct Bilirubin Procalcitonin Urine Appearance Urine Protein Urine Urobilinogen Urine RBC Urine WBC Ur Amphetamines Screen U Marijuana (THC) Screen Meds: Medications Acetaminophen (Acetaminophen 325 Mg Tablet) 650 mg PO Q6HP PRN; Protocol PRN Reason: Per Pain Protocol/Fever > 101 Last Admin: 07/16/22 23:32 Dose: 650 mg Hydrocodone Bitart/Acetaminophen (Hydrocodone/Apap 5/325mg Tablet) 1 tab PO Q4HP PRN PRN Reason: PAIN LEVEL 3-6 Last Admin: 07/16/22 19:24 Dose: 1 tab Albuterol/Ipratropium (Ipratropium/Albuterol 3 Ml Ampul.Neb) 3 ml NEB Q4HP PRN PRN Reason: Shortness Of Breath Amlodipine Besylate (Amlodipine 5 Mg Tablet) 5 mg PO QDAY [facility] Last Admin: 07/16/22 12:07 Dose: 5 mg Docusate Sodium (Docusate Sodium 100 Mg Capsule) 100 mg PO BID [facility] Last Admin: 07/16/22 21:23 Dose: 100 mg Hydralazine HCl (Hydralazine 20 Mg/Ml Vial) 0 mg IV Q2HP PRN PRN Reason: Hypertension Last Admin: 07/16/22 15:44 Dose: 10 mg Potassium Chloride 40 meq/ (Dextrose) 520 mls @ 130 mls/hr IV UD PRN PRN Reason: Potassium < 3 Magnesium Sulfate (Magnesium Sulfate) 2 gm in 50 mls @ 50 mls/hr IV UD PRN PRN Reason: Magnesium </= 1.6 Sodium Chloride (Sodium Chloride 0.9%) 1,000 mls @ 100 mls/hr IV .Q10H [facility] Stop: 07/17/22 07:44 Last Admin: 07/16/22 23:24 Dose: 100 mls/hr Ceftriaxone Sodium 2 gm/ (Dextrose) 50 mls @ 100 mls/hr IV Q24H [facility]; Protocol CLINDAMYCIN IN 0.9 % SOD CHLOR (Clindamycin 600 Mg/50 Ml-Ns) 600 mg in 50 mls @ 100 mls/hr IV Q8H [facility] Stop: 07/18/22 06:29 Last Infusion: 07/17/22 06:07 Dose: Infused Labetalol HCl (Labetalol 5 Mg/Ml Ml) 0 mg IV Q2HP PRN PRN Reason: Hypertension Levetiracetam (Levetiracetam 500 Mg Tablet) 1,500 mg PO BID [facility] Last Admin: 07/16/22 21:22 Dose: 1,500 mg Morphine Sulfate (Morphine 4 Mg/Ml Vial) 0 mg IV Q3HP PRN PRN Reason: Pain Last Admin: 07/16/22 12:48 Dose: 3 mg Ondansetron HCl (Ondansetron 4 Mg/2 Ml Vial) 4 mg IV Q4HP PRN PRN Reason: Nausea And Vomiting Last Admin: 07/16/22 12:48 Dose: 4 mg Polyethylene Glycol (Polyethylene Glycol 3350 17 Gm Packet) 17 gm PO DAILYP PRN PRN Reason: Constipation Potassium Chloride (Potassium Chloride 20 Meq Tablet) 40 meq PO UD PRN PRN Reason: Potssium is 3-3.5 Potassium Chloride (Potassium Chloride 20 Meq Tablet) 40 meq PO UD PRN PRN Reason: Potassium < 3 Senna (Sennosides 1 Tablet) 2 tab PO DAILYP PRN PRN Reason: Constipation Sodium Chloride (0.9 % Sodium Chloride 10 Ml Syringe) 10 ml IV Q8 [facility] Last Admin: 07/17/22 05:38 Dose: 10 ml A/P Narrative A/P Narrative: A: *LLE cellulitis: *Bacteremia(GPC in clusters): *Sepsis: 2/2 above -Febrile o/n, leukocytosis/tachypnea/tachycardia slowly improving - *ERNIE (unknown baseline): cr 1.3 *Gross hematuria: 2/2 kidney stones likely *HTN: Elevated on admit. Has been off his amlodipine and lisinopril for 3 months *Electrolyte disorder (hypophosphatemia/ hypomagnesemia /hyponatremia): *Substance abuse (Meth): *Tobacco abuse: *Sz d/o: on keppra, continue *Obesity: BMI 36, lifestyle modifications *Homeless: *Chronic back pain: P: -IV Vanc/zosyn, pending BC/WC, pending mrsa screen -Outline cellulitis area to monitor -IVF d/c -Monitor renal function/UOP -Monitor hematuria and H&H -f/u pct, elevated, CT leg pending -echo pending, repeat BC in AM -Continue home Norvasc, hold Lisinopril for ernie, prn IV meds -Obtain chest x-ray for new productive cough -Trend and replace electrolytes as needed, follow-up sodium -Smoking cessation counseling -Substance abuse cessation counseling -CM for placement needs -ppx: SCDs cant be placed because of suicide ideation a few weeks ago, pt not ambulating d/t pain, start heparin if hematuria resolved Time Spent With Patient Time: Total time spent is greater than 50% in coordination of care (as documented) at patient's floor/unit and/or counseling patient: Subsequent: Total time with patient: 50 - 65 Minutes QUALITY Stroke Symptom Onset Unknown: No VTE Deep Vein Thrombosis/Pulmonary Embolism Present on Admission: No
[2022-07-17] MEDS: levETIRAcetam 500 MG TABLET PO SCH ×2 (08:32→20:23)
[2022-07-17] MEDS: PHOSPHORUS 250 MG TABLET PO SCH ×4 (08:32→20:24)
[2022-07-17] MEDS: amLODIPine 5 MG TABLET PO SCH (08:32)
[2022-07-17] MEDS: DOCUSATE SODIUM 100 MG CAPSULE PO SCH ×2 (08:32→20:22)
[2022-07-17] MEDS: HYDROcodone/APAP 5/325MG TABLET PO PRN ×2 (08:32→20:22)
[2022-07-17] MEDS ORDERED: cefTRIAXone 2 GM in DEXTROSE 5% IN WATER 50 ML IV SCH (09:00)
[2022-07-17] MEDS ORDERED: VANCOMYCIN PER PHARMACY IV SCH (09:14)
[2022-07-17] MEDS: PIPERACILLIN SODIUM/TAZOBACTAM 3.375 GM in DEXTROSE 5% IN WATER 50 ML IV SCH ×3 (09:51→17:17)
[2022-07-17] MEDS: VANCOMYCIN 1,500 MG in 0.9 % SODIUM CHLORIDE 500 ML IV SCH ×2 (10:27→22:15)
[2022-07-17] MEDS: HEPARIN 5,000 UNIT/ML VIAL SQ SCH ×2 (10:33→20:23)
--- NOTE | 2022-07-17 16:17 | EKG ---
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 Measurements Intervals [place] Rate: 107 P: 68 GA: 170 QRS: -8 QRSD: 99 T: 17 QT: 340 QTc: 454 Interpretive Statements Sinus tachycardia Ventricular premature complex ANTERIOR INFARCT, OLD Electronically Signed On 07-17-2022 16:17:22 PDT by Gregg Steele M.D. /store/[email or web address]/[id number]
[2022-07-18] MEDS: PIPERACILLIN SODIUM/TAZOBACTAM 3.375 GM in DEXTROSE 5% IN WATER 50 ML IV SCH ×5 (00:11→23:43)
[2022-07-18] MEDS: HYDROcodone/APAP 5/325MG TABLET PO PRN ×3 (02:59→20:52)
[2022-07-18] MEDS: 0.9 % SODIUM CHLORIDE 10 ML SYRINGE IV SCH ×3 (06:05→20:54)
[2022-07-18 06:20] LABS: Basophils # (Auto) 0.06 K/mcL (0.00-0.30); Basophils % (Auto) 0.4 % (0.0-2.0); Eosinophils # (Auto) 0.07 K/mcL (0.00-0.70); Eosinophils % (Auto) 0.5 % (0.0-7.0); Hematocrit 34.6 % (40.1-51.0); Hemoglobin 11.6 g/dL (13.7-17.5); Lymphocytes # (Auto) 0.97 K/mcL (1.50-4.80); Lymphocytes % (Auto) 7.2 % (15.5-49.0); Mean Cell Volume 89.4 fL (80.0-100.0); Mean Corpuscular HGB Conc 33.5 g/dL (31.0-36.0); Mean Platelet Volume 10.5 fL (8.8-12.5); Monocytes # (Auto) 0.91 K/mcL (0.10-0.90); Monocytes % (Auto) 6.8 % (1.0-12.0); Neutrophils % (Auto) 84.7 % (38.0-78.0); Platelet Count 182 K/mcL (140-440); RBC 3.87 M/mcL (4.63-6.08); WBC 13.4 K/mcL (4.5-11.0)
[2022-07-18 06:49] LABS: ALT/SGPT 6 U/L (<40); AST/SGOT 10 U/L (<40); Albumin 2.8 gm/dL (3.2-5.2); Albumin/Globulin Ratio 0.9 (1.0-2.3); Alkaline Phosphatase 91 U/L (39-117); Bilirubin,Direct < 0.2 mg/dL (0-0.3); Bilirubin,Total 0.5 mg/dL (0.1-1.0); Blood Urea Nitrogen 14 mg/dL (6-20); Calcium 8.1 mg/dL (8.6-10.4); Carbon Dioxide 24 mmol/L (22-30); Chloride 101 mmol/L (96-108); Globulin 3.2 gm/dL (2.2-3.7); Glomerular Filtration Rate 90; Glucose 102 mg/dL (70-105); Lactate Dehydrogenase 156 U/L (135-225); Triglycerides 64 mg/dL (<150); Uric Acid 4.3 mg/dL (2.5-8.0)
--- NOTE | 2022-07-18 07:44 | Internal Med Progress Note ---
SUBJECTIVE Subjective Patient information: Note initiated : 07/18/22 at 7:38 am Service Date, if different from initiated Date: [] Patient: Jabier Hubbard a 47 y/o M admitted on 07/16/22 for Fever, Cellulitis, penile bleeding. Chief Complaint: [] Interval history: History of present illness: Mr. Hubbard is a 47 year old M Here with left leg redness and swelling. fever and hematuria concerned he may have kidney stones. Patient recently moved down from [place] to help with his daughter's probation. He is currently living at a private [place] [facility] fel[facility] who cannot get a job. His girlfriend told him he had to make a decision between her and her family and his daughter so he decided to stay in [place]. Patient states about 3 weeks ago he received a spider bite to the left lateral lower leg. He said it was improving however he says he noticed that after he went to [facility] health and welfare office to get food stamps and when he came home sometime he noticed that he was increasingly red and swollen and painful. He also complains of productive cough of thick yellow sputum over the past 2 to 3 days. Has a chronic cough no change. He is also complained of fevers and chills and nausea but no vomiting. Patient has not been on his blood pressure medications or Keppra for the past 3 months because he ran out and does not have a primary care doctor anymore Patient uses methamphetamine, smokes and denies IV use. Says it helps with his chronic pain. In the ED he was evaluated in the did not appear to be any fluctuance or drainage, abscess. X-ray showed no osteo. Patient was tachycardic and tachypneic and febrile. CT abdomen pelvis showed nonobstructing kidney stones on the left. Showed some perinephric stranding around both kidneys that was nonspecific with a differential of chronic scar versus inflammation. Patient does not have any flank pain and UA unconcerning for infection. In the ED they placed a Philippe and immediately received blood and blood clots into the bag which is now clearing up. Procalcitonin elevated at 0.7 Patient started on Vanco and Rocephin in the ED. 07/17 Patient drowsy. Complaining of back pain and leg pain. One of the blood cultures are positive for gram-positive cocci in clusters in anaerobic bottle of set. Leukocytosis still high but improving. Hyponatremia present. BUN and creatinine 24/1.3. Hypophosphatemia and hypomagnesemia. will try heat pad for back. 07/18 Patient complains of headache and leg pain. But denies any nausea today. States he slept better. Leukocytosis improving. Patient still febrile overnight but fever curve improving. Hypokalemia. Renal function improving. Low Phos , mag improving. Review of Systems: Pertinent positive as above. Denies headache/fever/chills/nausea/vomiting/chest or abdominal pain/cough/dyspnea/diarrhea. PHYSICAL EXAM General: Awake, No acute Distress, obese Eyes/N/T: EOMI, no scleral icterus, Head/Neck: neck supple, full ROM, CV: RRR, 2/6SM, Pulm: Clear b/l, no wheezing/rhonchi/rales, no respiratory distress Abd: soft, nontender, +BS x4 Ext: no clubbing/cyanosis/edema to RLE, LLE witherythema/edema/TTP around lower leg circumfrentially with superficial ulcer lateral leg - no real change Neuro: alert, no focal deficits, moves all extremities, , sensations intact b/l upper/lower Psychiatric: Skin: warm/dry, normal color Constitutional Vitals: Vital Signs Temp Pulse Resp BP Pulse Ox O2 Del Method O2 Flow Rate 98.2 F 82 20 124/77 98 Room Air 0 07/18/22 04:20 07/18/22 04:20 07/18/22 04:20 07/18/22 04:20 07/18/22 04:20 07/18/22 04:20 07/16/22 04:01 Period Temp Pulse Resp BP Sys/Long Pulse Ox O2 Del Method O2 Flow Rate Last 24 Hr 98.2 F-100.6 F 82-98 -22 117-141/72-93 95-98 Room Air-Room Air Intake and Output 07/17/22 07/18/22 07/18/22 19:59 03:59 11:59 Intake Total 840 550 730 Output Total 450 750 900 Balance 390 -200 -170 Weight 120.429 kg Intake & Output: Intake & Output 07/17/22 07/18/22 07/18/22 19:59 03:59 11:59 Intake Total 840 550 730 Output Total 450 750 900 Balance 390 -200 -170 Weight 120.429 kg Intake: IV 600 550 50 Zosyn 3.375 gm In Dextrose 5% 100 50 50 in Water 50 ml @ 100 mls/hr IV Q6H [facility] Rx#:[id number] Vancomycin 1,500 mg In Sodium 500 500 Chloride 0.9% 500 ml @ 333.3 mls/hr IV Q12H [facility] Rx#: [id number] Oral 240 680 Output: Urine Catheter Amount 450 750 900 Other: Meal Lunch Percent of Meal Consumed 25% Feeding Ability Independent Urine Appearance Clear Clear Clear Uretheral (Philippe) Clear Urine Color Light Nahomy Light Nahomy Light Nahomy Uretheral (Philippe) Dark Nahomy Urine Odor Strong OBJ DATA Labs 07/18/22 05:30 07/18/22 05:30 Labs: Abnormal Lab Results 07/18/22 07/18/22 07/18/22 05:30 05:30 05:30 WBC 13.4 H RBC 3.87 L Hgb 11.6 L Hct 34.6 L Immature Gran % (Auto) Neut % (Auto) 84.7 H Lymph % (Auto) 7.2 L Lymph # (Auto) 0.97 L [place] # (Auto) 0.91 H Immature Gran # 0.06 H Absolute Neutrophils 11.37 H POC VBG pH POC VBG pCO2 at Temp POC VBG pO2 POC VBG HCO3 POC VBG Base Excess Sodium Potassium 3.1 L POC Chloride Chloride POC BUN BUN Creatinine POC Creatinine POC Glucose Calcium 8.1 L POC WB Ioniz Calcium Phosphorus 2.0 L Magnesium Total Bilirubin Direct Bilirubin Albumin 2.8 L Albumin/Globulin Ratio 0.9 L Procalcitonin 0.64 H Urine Appearance Urine Protein Urine Urobilinogen Urine RBC Urine WBC Ur Amphetamines Screen U Marijuana (THC) Screen 07/17/22 07/17/22 07/17/22 05:25 05:25 05:25 WBC 20.7 H RBC 4.19 L Hgb 12.6 L Hct 38.0 L Immature Gran % (Auto) 1.1 H Neut % (Auto) 90.9 H Lymph % (Auto) 4.0 L Lymph # (Auto) 0.83 L [place] # (Auto) Immature Gran # 0.23 H Absolute Neutrophils 18.82 H POC VBG pH POC VBG pCO2 at Temp POC VBG pO2 POC VBG HCO3 POC VBG Base Excess Sodium 127 L Potassium POC Chloride Chloride 93 L POC BUN BUN 24 H Creatinine 1.3 H POC Creatinine POC Glucose Calcium 8.2 L POC WB Ioniz Calcium Phosphorus 1.9 L Magnesium 1.4 L Total Bilirubin Direct Bilirubin 0.4 H Albumin Albumin/Globulin Ratio Procalcitonin 1.10 H Urine Appearance Urine Protein Urine Urobilinogen Urine RBC Urine WBC Ur Amphetamines Screen U Marijuana (THC) Screen 07/16/22 07/16/22 07/16/22 06:08 06:07 04:20 WBC RBC Hgb Hct Immature Gran % (Auto) Neut % (Auto) Lymph % (Auto) Lymph # (Auto) [place] # (Auto) Immature Gran # Absolute Neutrophils POC VBG pH POC VBG pCO2 at Temp POC VBG pO2 POC VBG HCO3 POC VBG Base Excess Sodium Potassium POC Chloride Chloride POC BUN BUN Creatinine POC Creatinine POC Glucose Calcium POC WB Ioniz Calcium Phosphorus Magnesium Total Bilirubin Direct Bilirubin Albumin Albumin/Globulin Ratio Procalcitonin 0.68 H Urine Appearance Cloudy A Urine Protein 30 A Urine Urobilinogen 2.0 A Urine RBC > 100 H Urine WBC 6 H Ur Amphetamines Screen Suspect positive A U Marijuana (THC) Screen Suspect positive A 07/16/22 07/16/22 07/16/22 04:20 04:20 04:10 WBC 36.7 H* RBC Hgb Hct Immature Gran % (Auto) 1.8 H Neut % (Auto) 93.4 H Lymph % (Auto) 1.4 L Lymph # (Auto) 0.50 L [place] # (Auto) 1.13 H Immature Gran # 0.67 H Absolute Neutrophils 34.32 H POC VBG pH POC VBG pCO2 at Temp POC VBG pO2 POC VBG HCO3 POC VBG Base Excess Sodium Potassium POC Chloride 95 L Chloride POC BUN 21 H BUN Creatinine POC Creatinine 1.3 H POC Glucose 119 H Calcium POC WB Ioniz Calcium 1.09 L Phosphorus Magnesium Total Bilirubin 1.1 H Direct Bilirubin Albumin Albumin/Globulin Ratio Procalcitonin Urine Appearance Urine Protein Urine Urobilinogen Urine RBC Urine WBC Ur Amphetamines Screen U Marijuana (THC) Screen 07/16/22 04:10 WBC RBC Hgb Hct Immature Gran % (Auto) Neut % (Auto) Lymph % (Auto) Lymph # (Auto) [place] # (Auto) Immature Gran # Absolute Neutrophils POC VBG pH 7.45 H POC VBG pCO2 at Temp 40.5 L POC VBG pO2 23 L POC VBG HCO3 28.1 H POC VBG Base Excess 4.0 H* Sodium Potassium POC Chloride Chloride POC BUN BUN Creatinine POC Creatinine POC Glucose Calcium POC WB Ioniz Calcium Phosphorus Magnesium Total Bilirubin Direct Bilirubin Albumin Albumin/Globulin Ratio Procalcitonin Urine Appearance Urine Protein Urine Urobilinogen Urine RBC Urine WBC Ur Amphetamines Screen U Marijuana (THC) Screen Meds: Medications Acetaminophen (Acetaminophen 325 Mg Tablet) 650 mg PO Q6HP PRN; Protocol PRN Reason: Per Pain Protocol/Fever > 101 Last Admin: 07/16/22 23:32 Dose: 650 mg Hydrocodone Bitart/Acetaminophen (Hydrocodone/Apap 5/325mg Tablet) 1 tab PO Q4HP PRN PRN Reason: PAIN LEVEL 3-6 Last Admin: 07/18/22 02:59 Dose: 1 tab Albuterol/Ipratropium (Ipratropium/Albuterol 3 Ml Ampul.Neb) 3 ml NEB Q4HP PRN PRN Reason: Shortness Of Breath Amlodipine Besylate (Amlodipine 5 Mg Tablet) 5 mg PO QDAY [facility] Last Admin: 07/17/22 08:32 Dose: 5 mg Docusate Sodium (Docusate Sodium 100 Mg Capsule) 100 mg PO BID [facility] Last Admin: 07/17/22 20:22 Dose: 100 mg Heparin Sodium (Porcine) (Heparin 5,000 Unit/Ml Vial) 5,000 unit SQ Q12 [facility] Last Admin: 07/17/22 20:23 Dose: 5,000 unit Hydralazine HCl (Hydralazine 20 Mg/Ml Vial) 0 mg IV Q2HP PRN PRN Reason: Hypertension Last Admin: 07/16/22 15:44 Dose: 10 mg Potassium Chloride 40 meq/ (Dextrose) 520 mls @ 130 mls/hr IV UD PRN PRN Reason: Potassium < 3 Magnesium Sulfate (Magnesium Sulfate) 2 gm in 50 mls @ 50 mls/hr IV UD PRN PRN Reason: Magnesium </= 1.6 Piperacillin Sod/Tazobactam (Sod 3.375 gm/ Dextrose) 50 mls @ 100 mls/hr IV Q6H [facility]; Protocol Last Infusion: 07/18/22 06:03 Dose: Infused Vancomycin HCl 1,500 mg/ (Sodium Chloride) 500 mls @ 333.3 mls/hr IV Q12H [facility] Last Infusion: 07/17/22 23:50 Dose: Infused Labetalol HCl (Labetalol 5 Mg/Ml Ml) 0 mg IV Q2HP PRN PRN Reason: Hypertension Levetiracetam (Levetiracetam 500 Mg Tablet) 1,500 mg PO BID [facility] Last Admin: 07/17/22 20:23 Dose: 1,500 mg Morphine Sulfate (Morphine 4 Mg/Ml Vial) 0 mg IV Q3HP PRN PRN Reason: Pain Last Admin: 07/16/22 12:48 Dose: 3 mg Ondansetron HCl (Ondansetron 4 Mg/2 Ml Vial) 4 mg IV Q4HP PRN PRN Reason: Nausea And Vomiting Last Admin: 07/16/22 12:48 Dose: 4 mg Polyethylene Glycol (Polyethylene Glycol 3350 17 Gm Packet) 17 gm PO DAILYP PRN PRN Reason: Constipation Potassium Chloride (Potassium Chloride 20 Meq Tablet) 40 meq PO UD PRN PRN Reason: Potssium is 3-3.5 Potassium Chloride (Potassium Chloride 20 Meq Tablet) 40 meq PO UD PRN PRN Reason: Potassium < 3 Senna (Sennosides 1 Tablet) 2 tab PO DAILYP PRN PRN Reason: Constipation Sodium Chloride (0.9 % Sodium Chloride 10 Ml Syringe) 10 ml IV Q8 [facility] Last Admin: 07/18/22 06:05 Dose: 10 ml Vancomycin HCl (Vancomycin Per Pharmacy) 1 order IV UD [facility]; Protocol A/P Narrative A/P Narrative: A: *LLE cellulitis: *Bacteremia(GPC in clusters): *Sepsis: 2/2 above -Fever curve improving, leukocytosis(improving)/tachypnea/tachycardia slowly improving - *ERNIE (unknown baseline): improving *Gross hematuria: 2/2 kidney stones likely, resolved *HTN: Elevated on admit. Has been off his amlodipine and lisinopril for 3 months *Electrolyte disorder (hypophosphatemia/ hypomagnesemia /hyponatremia/Hypokalemia): *Substance abuse (Meth): *Tobacco abuse: *Sz d/o: on keppra, continue *Obesity: BMI 36, lifestyle modifications *Homeless: *Chronic back pain: P: -IV Vanc/zosyn, pending BC/WC, pending mrsa screen neg -Outline cellulitis area to monitor -pending f/u BC -echo pending -Monitor renal function/UOP -Monitor hematuria and H&H -f/u pct, CT leg pending -Continue home Norvasc, hold Lisinopril for ernie, prn IV meds -Obtain chest x-ray for new productive cough -Trend and replace electrolytes as needed, follow-up sodium -Smoking cessation counseling -Substance abuse cessation counseling -CM for placement needs -ppx: heparin Time Spent With Patient Time: Total time spent is greater than 50% in coordination of care (as documented) at patient's floor/unit and/or counseling patient: Subsequent: Total time with patient: 50 - 65 Minutes QUALITY Stroke Symptom Onset Unknown: No VTE Deep Vein Thrombosis/Pulmonary Embolism Present on Admission: No
[2022-07-18] MEDS: levETIRAcetam 500 MG TABLET PO SCH ×2 (08:35→20:53)
[2022-07-18] MEDS: DOCUSATE SODIUM 100 MG CAPSULE PO SCH ×2 (08:36→20:53)
[2022-07-18] MEDS: amLODIPine 5 MG TABLET PO SCH (08:36)
[2022-07-18] MEDS: HEPARIN 5,000 UNIT/ML VIAL SQ SCH ×2 (08:36→20:53)
[2022-07-18] MEDS ORDERED: POTASSIUM PHOSPHATE 40 MEQ in DEXTROSE 5% IN WATER 500 ML IV ONE (09:00)
[2022-07-18] MEDS: NICOTINE 21 MG PATCH TOPICAL SCH (09:36)
[2022-07-18] MEDS ORDERED: IOPAMIDOL 100 ML BOTTLE IV ONE (10:19)
--- NOTE | 2022-07-18 10:32 | Cat Scan Report ---
History: Spider bite lateral side of the left lower leg with cellulitis, fever, evaluate for abscess or osteomyelitis TECHNIQUE: Following injection of intravenous nonionic contrast the patient was imaged from the distal femur through the metatarsals. Sagittal and coronal reformats were created. The radiation exposure was limited using dose reduction technology FINDINGS: There is moderate cellulitis lateral to the ankle and lateral to the hindfoot and proximal metatarsals. There is no abscess or foreign body. There is subcutaneous edema which extends from the foot to the upper calf. Bones are normally mineralized. There is no evidence of osteomyelitis. Joint spaces in the knee, ankle and foot are normal in width and alignment without evidence of arthritis or infection. IMPRESSION: Cellulitis in the left lower leg and no evidence of abscess or osteomyelitis Interpreted and Authenticated by: Laurent Steele 07/18/22
[2022-07-18] MEDS ORDERED: VANCOMYCIN 2,000 MG in 0.9 % SODIUM CHLORIDE 500 ML IV SCH (11:00)
[2022-07-18] MEDS: hydrALAZINE 20 MG/ML VIAL IV PRN (16:54)
[2022-07-18] MEDS: VANCOMYCIN 1,500 MG in 0.9 % SODIUM CHLORIDE 500 ML IV SCH (16:56)
[2022-07-18] MEDS: ONDANSETRON 4 MG/2 ML VIAL IV PRN (21:16)
[2022-07-19] MEDS: PIPERACILLIN SODIUM/TAZOBACTAM 3.375 GM in DEXTROSE 5% IN WATER 50 ML IV SCH ×4 (06:03→23:23)
[2022-07-19] MEDS: 0.9 % SODIUM CHLORIDE 10 ML SYRINGE IV SCH ×3 (06:03→23:23)
[2022-07-19] MEDS: HYDROcodone/APAP 5/325MG TABLET PO PRN ×3 (06:50→17:22)
[2022-07-19] MEDS: morphine 4 MG/ML VIAL IV PRN ×3 (06:50→20:21)
[2022-07-19 06:56] LABS: ALT/SGPT 9 U/L (<40); AST/SGOT 10 U/L (<40); Albumin 2.7 gm/dL (3.2-5.2); Albumin/Globulin Ratio 0.8 (1.0-2.3); Alkaline Phosphatase 94 U/L (39-117); Bilirubin,Direct < 0.2 mg/dL (0-0.3); Bilirubin,Total 0.4 mg/dL (0.1-1.0); Blood Urea Nitrogen 10 mg/dL (6-20); Calcium 8.4 mg/dL (8.6-10.4); Carbon Dioxide 23 mmol/L (22-30); Chloride 102 mmol/L (96-108); Globulin 3.3 gm/dL (2.2-3.7); Glomerular Filtration Rate 102; Glucose 100 mg/dL (70-105); Lactate Dehydrogenase 140 U/L (135-225); Phosphorous 2.5 mg/dL (2.5-4.5); Triglycerides 87 mg/dL (<150); Uric Acid 3.1 mg/dL (2.5-8.0)
[2022-07-19] MEDS ORDERED: ALBUMIN HUMAN 12.5 GM/50 ML VIAL IV ONE (07:28)
[2022-07-19] MEDS ORDERED: FUROSEMIDE 40 MG/4 ML VIAL IV ONE (07:28)
--- NOTE | 2022-07-19 07:29 | Internal Med Progress Note ---
SUBJECTIVE Subjective Patient information: Note initiated : 07/19/22 at 7:24 am Service Date, if different from initiated Date: [] Patient: Jabier Hubbard a 47 y/o M admitted on 07/16/22 for Fever, Cellulitis, penile bleeding. Chief Complaint: [] Interval history: History of present illness: Mr. Hubbard is a 47 year old M Here with left leg redness and swelling. fever and hematuria concerned he may have kidney stones. Patient recently moved down from [place] to help with his daughter's probation. 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 His girlfriend told him he had to make a decision between her and her family and his daughter so he decided to stay in [place]. Patient states about 3 weeks ago he received a spider bite to the left lateral lower leg. He said it was improving however he says he noticed that after he went to the [facility] health and welfare office to get food stamps and when he came home sometime he noticed that he was increasingly red and swollen and painful. He also complains of productive cough of thick yellow sputum over the past 2 to 3 days. Has a chronic cough no change. He is also complained of fevers and chills and nausea but no vomiting. Patient has not been on his blood pressure medications or Keppra for the past 3 months because he ran out and does not have a primary care doctor anymore Patient uses methamphetamine, smokes and denies IV use. Says it helps with his chronic pain. In the ED he was evaluated in the did not appear to be any fluctuance or drainage, abscess. X-ray showed no osteo. Patient was tachycardic and tachypneic and febrile. CT abdomen pelvis showed nonobstructing kidney stones on the left. Showed some perinephric stranding around both kidneys that was nonspecific with a differential of chronic scar versus inflammation. Patient does not have any flank pain and UA unconcerning for infection. In the ED they placed a Philippe and immediately received blood and blood clots into the bag which is now clearing up. Procalcitonin elevated at 0.7 Patient started on Vanco and Rocephin in the ED. 07/17 Patient drowsy. Complaining of back pain and leg pain. One of the blood cultures are positive for gram-positive cocci in clusters in anaerobic bottle of set. Leukocytosis still high but improving. Hyponatremia present. BUN and creatinine 24/.3. Hypophosphatemia and hypomagnesemia. will try heat pad for back. 07/18 Patient complains of headache and leg pain. But denies any nausea today. States he slept better. Leukocytosis improving. Patient still febrile overnight but fever curve improving. Hypokalemia. Renal function improving. Low Phos , mag improving. 07/19 Patient complains of poor sleep headache nausea vomiting. Patient states his left leg is more painful. CT of the leg showed cellulitis but no deeper infection or abscess. Patient leg does not look more swollen although he has been on IV fluids and off his diuretics. Renal function has been much improved we will give albumin with Lasix given his low albumin and elevated leg. Strep pyogenes on cultures and will give clindamycin for toxin production. Review of Systems: Pertinent positive as above. Denies headache/fever/chills/nausea/vomiting/chest or abdominal pain/cough/dyspnea/diarrhea. PHYSICAL EXAM General: Awake, No acute Distress, obese Eyes/N/T: EOMI, no scleral icterus, Head/Neck: neck supple, full ROM, CV: RRR, 2/6SM, Pulm: Clear b/l, no wheezing/rhonchi/rales, no respiratory distress Abd: soft, nontender, +BS x4 Ext: no clubbing/cyanosis/edema to RLE, LLE witherythema/edema/TTP around lower leg circumfrentially with superficial ulcer lateral leg - increased redness Neuro: alert, no focal deficits, moves all extremities, , sensations intact b/l upper/lower Psychiatric: Skin: warm/dry, normal color Constitutional Vitals: Vital Signs Temp Pulse Resp BP Pulse Ox O2 Del Method O2 Flow Rate 98.4 F 72 20 129/78 98 Room Air 0 07/19/22 03:00 07/19/22 03:00 07/19/22 03:00 07/19/22 03:00 07/19/22 03:00 07/19/22 03:00 07/16/22 04:01 Period Temp Pulse Resp BP Sys/Long Pulse Ox O2 Del Method O2 Flow Rate Last 24 Hr 98.4 F-99.0 F 72-87 16-20 120-156/74-91 97-99 Room Air-Room Air Intake and Output 07/18/22 07/19/22 07/19/22 19:59 03:59 11:59 Intake Total 1086.0909 290 850 Output Total 9157 617 1076 Balance -188.9091 -210 -150 Weight 121.138 kg Intake & Output: Intake & Output 07/18/22 07/19/22 07/19/22 19:59 03:59 11:59 Intake Total 1086.0909 290 850 Output Total 3807 231 1378 Balance -188.9091 -210 -150 Weight 121.138 kg Intake: IV 1086.0909 50 50 Zosyn 3.375 gm In Dextrose 5% 100 50 50 in Water 50 ml @ 100 mls/hr IV Q6H [facility] Rx#:[id number] Potassium Phosphate 40 Meq In 486.0909 Dextrose 5% in Water 500 ml @ 127.273 mls/hr IV ONCE ONE Rx#: [id number] Vancomycin 2,000 mg In Sodium 500 Chloride 0.9% 500 ml @ 250 mls/ hr IV Q12H [facility] Rx#:[id number] Oral 240 800 Output: Urine Catheter Amount 3478 066 1531 Other: Meal Dinner Percent of Meal Consumed 75% Feeding Ability Independent Urine Appearance Clear Clear Clear Sediment Uretheral (Philippe) Clear Urine Color Yellow Yellow Yellow Uretheral (Philippe) Yellow Urine Odor Normal Normal OBJ DATA Labs 07/18/22 05:30 07/19/22 05:59 Labs: Abnormal Lab Results 07/19/22 07/18/22 07/18/22 05:59 09:12 05:30 WBC RBC Hgb Hct Immature Gran % (Auto) Neut % (Auto) Lymph % (Auto) Lymph # (Auto) [place] # (Auto) Immature Gran # Absolute Neutrophils Sodium Potassium Chloride BUN Creatinine Calcium 8.4 L Phosphorus Magnesium Direct Bilirubin C-Reactive Protein 12.80 H 18.60 H Albumin 2.7 L Albumin/Globulin Ratio 0.8 L Procalcitonin 0.64 H Ur Amphetamines Screen U Marijuana (THC) Screen 07/18/22 07/18/22 07/17/22 05:30 05:30 05:25 WBC 13.4 H RBC 3.87 L Hgb 11.6 L Hct 34.6 L Immature Gran % (Auto) Neut % (Auto) 84.7 H Lymph % (Auto) 7.2 L Lymph # (Auto) 0.97 L [place] # (Auto) 0.91 H Immature Gran # 0.06 H Absolute Neutrophils 11.37 H Sodium Potassium 3.1 L Chloride BUN Creatinine Calcium 8.1 L Phosphorus 2.0 L Magnesium Direct Bilirubin C-Reactive Protein Albumin 2.8 L Albumin/Globulin Ratio 0.9 L Procalcitonin 1.10 H Ur Amphetamines Screen U Marijuana (THC) Screen 07/17/22 07/17/22 07/16/22 05:25 05:25 06:08 WBC 20.7 H RBC 4.19 L Hgb 12.6 L Hct 38.0 L Immature Gran % (Auto) 1.1 H Neut % (Auto) 90.9 H Lymph % (Auto) 4.0 L Lymph # (Auto) 0.83 L [place] # (Auto) Immature Gran # 0.23 H Absolute Neutrophils 18.82 H Sodium 127 L Potassium Chloride 93 L BUN 24 H Creatinine 1.3 H Calcium 8.2 L Phosphorus 1.9 L Magnesium 1.4 L Direct Bilirubin 0.4 H C-Reactive Protein Albumin Albumin/Globulin Ratio Procalcitonin Ur Amphetamines Screen Suspect positive A U Marijuana (THC) Screen Suspect positive A Meds: Medications Acetaminophen (Acetaminophen 325 Mg Tablet) 650 mg PO Q6HP PRN; Protocol PRN Reason: Per Pain Protocol/Fever > 101 Last Admin: 07/16/22 23:32 Dose: 650 mg Hydrocodone Bitart/Acetaminophen (Hydrocodone/Apap 5/325mg Tablet) 1 tab PO Q4HP PRN PRN Reason: PAIN LEVEL 3-6 Last Admin: 07/19/22 06:50 Dose: 1 tab Albuterol/Ipratropium (Ipratropium/Albuterol 3 Ml Ampul.Neb) 3 ml NEB Q4HP PRN PRN Reason: Shortness Of Breath Amlodipine Besylate (Amlodipine 5 Mg Tablet) 5 mg PO QDAY [facility] Last Admin: 07/18/22 08:36 Dose: 5 mg Docusate Sodium (Docusate Sodium 100 Mg Capsule) 100 mg PO BID [facility] Last Admin: 07/18/22 20:53 Dose: 100 mg Heparin Sodium (Porcine) (Heparin 5,000 Unit/Ml Vial) 5,000 unit SQ Q12 [facility] Last Admin: 07/18/22 20:53 Dose: 5,000 unit Hydralazine HCl (Hydralazine 20 Mg/Ml Vial) 0 mg IV Q2HP PRN PRN Reason: Hypertension Last Admin: 07/18/22 16:54 Dose: 10 mg Potassium Chloride 40 meq/ (Dextrose) 520 mls @ 130 mls/hr IV UD PRN PRN Reason: Potassium < 3 Magnesium Sulfate (Magnesium Sulfate) 2 gm in 50 mls @ 50 mls/hr IV UD PRN PRN Reason: Magnesium </= 1.6 Piperacillin Sod/Tazobactam (Sod 3.375 gm/ Dextrose) 50 mls @ 100 mls/hr IV Q6H [facility]; Protocol Last Infusion: 07/19/22 06:44 Dose: Infused Labetalol HCl (Labetalol 5 Mg/Ml Ml) 0 mg IV Q2HP PRN PRN Reason: Hypertension Levetiracetam (Levetiracetam 500 Mg Tablet) 1,500 mg PO BID [facility] Last Admin: 07/18/22 20:53 Dose: 1,500 mg Morphine Sulfate (Morphine 4 Mg/Ml Vial) 0 mg IV Q3HP PRN PRN Reason: Pain Last Admin: 07/19/22 06:50 Dose: 3 mg Nicotine (Nicotine 21 Mg Patch) 21 mg TOPICAL DAILY@0900 [facility] Last Admin: 07/18/22 09:36 Dose: 21 mg Ondansetron HCl (Ondansetron 4 Mg/2 Ml Vial) 4 mg IV Q4HP PRN PRN Reason: Nausea And Vomiting Last Admin: 07/18/22 21:16 Dose: 4 mg Polyethylene Glycol (Polyethylene Glycol 3350 17 Gm Packet) 17 gm PO DAILYP PRN PRN Reason: Constipation Potassium Chloride (Potassium Chloride 20 Meq Tablet) 40 meq PO UD PRN PRN Reason: Potssium is 3-3.5 Potassium Chloride (Potassium Chloride 20 Meq Tablet) 40 meq PO UD PRN PRN Reason: Potassium < 3 Senna (Sennosides 1 Tablet) 2 tab PO DAILYP PRN PRN Reason: Constipation Sodium Chloride (0.9 % Sodium Chloride 10 Ml Syringe) 10 ml IV Q8 [facility] Last Admin: 07/19/22 06:03 Dose: 10 ml A/P Narrative A/P Narrative: A: *LLE cellulitis(Strep Pyogenes): -CT no abscess *Bacteremia(GPC in clusters): >> Staph coag neg 04/01 >> contminent, repeat BC neg *Sepsis: 2/2 above -afebrile o/n, leukocytosis(improving)/tachypnea/tachycardia improving - *ERNIE (unknown baseline): improved *Gross hematuria: 2/2 kidney stones likely, resolved *HTN: Elevated on admit. Has been off his amlodipine and lisinopril for 3 months *Electrolyte disorder (hypophosphatemia/ hypomagnesemia /hyponatremia/Hypokalemia): *URI: cxr neg *Substance abuse (Meth): *Tobacco abuse: *Sz d/o: on keppra, continue *Obesity: BMI 36, lifestyle modifications *Homeless: *Chronic back pain: P: -IV Vanc(d/c'd)to [facility] for toxins/zosyn, pending final BC/WC, pending mrsa screen neg -Outline cellulitis area to monitor -Monitor renal function/UOP -Monitor hematuria and H&H -f/u pct/crp -Continue home Norvasc, hold Lisinopril -lasix today for peripheral edema -Trend and replace electrolytes as needed, follow-up sodium -Smoking cessation counseling -Substance abuse cessation counseling -CM for placement needs -ppx: heparin Time Spent With Patient Time: Total time spent is greater than 50% in coordination of care (as documented) at patient's floor/unit and/or counseling patient: Subsequent: Total time with patient: 50 - 65 Minutes QUALITY Stroke Symptom Onset Unknown: No VTE Deep Vein Thrombosis/Pulmonary Embolism Present on Admission: No
[2022-07-19] MEDS ORDERED: CALCIUM CARBONATE 500 MG TAB.CHEW ONE (07:36)
[2022-07-19] MEDS: DOCUSATE SODIUM 100 MG CAPSULE PO SCH ×2 (09:11→20:25)
[2022-07-19] MEDS: HEPARIN 5,000 UNIT/ML VIAL SQ SCH ×2 (09:11→20:25)
[2022-07-19] MEDS: NICOTINE 21 MG PATCH TOPICAL SCH (09:11)
[2022-07-19] MEDS: levETIRAcetam 500 MG TABLET PO SCH ×2 (09:12→20:25)
[2022-07-19] MEDS: amLODIPine 5 MG TABLET PO SCH (09:12)
[2022-07-19] MEDS: CLINDAMYCIN IN 0.9 % SOD CHLOR 600 MG/50 ML BAG IV SCH ×3 (10:10→21:05)
[2022-07-20] MEDS: morphine 4 MG/ML VIAL IV PRN (03:59)
[2022-07-20] MEDS: 0.9 % SODIUM CHLORIDE 10 ML SYRINGE IV SCH ×3 (04:14→20:28)
[2022-07-20] MEDS: CLINDAMYCIN IN 0.9 % SOD CHLOR 600 MG/50 ML BAG IV SCH ×3 (05:15→21:13)
[2022-07-20 06:45] LABS: Basophils # (Auto) 0.08 K/mcL (0.00-0.30); Basophils % (Auto) 0.8 % (0.0-2.0); Eosinophils # (Auto) 0.26 K/mcL (0.00-0.70); Eosinophils % (Auto) 2.5 % (0.0-7.0); Hematocrit 33.9 % (40.1-51.0); Hemoglobin 11.3 g/dL (13.7-17.5); Lymphocytes # (Auto) 1.06 K/mcL (1.50-4.80); Lymphocytes % (Auto) 10.2 % (15.5-49.0); Mean Cell Volume 87.6 fL (80.0-100.0); Mean Corpuscular HGB Conc 33.3 g/dL (31.0-36.0); Mean Platelet Volume 10.4 fL (8.8-12.5); Monocytes # (Auto) 0.84 K/mcL (0.10-0.90); Monocytes % (Auto) 8.1 % (1.0-12.0); Neutrophils % (Auto) 77.4 % (38.0-78.0); Platelet Count 234 K/mcL (140-440); RBC 3.87 M/mcL (4.63-6.08); Red Cell Distribution Width 13.8 % (11.5-14.5); WBC 10.4 K/mcL (4.5-11.0)
[2022-07-20] MEDS: PIPERACILLIN SODIUM/TAZOBACTAM 3.375 GM in DEXTROSE 5% IN WATER 50 ML IV SCH ×4 (07:05→22:49)
[2022-07-20 07:15] LABS: ALT/SGPT 11 U/L (<40); AST/SGOT 12 U/L (<40); Albumin/Globulin Ratio 0.9 (1.0-2.3); Alkaline Phosphatase 136 U/L (39-117); Bilirubin,Total 0.4 mg/dL (0.1-1.0); Blood Urea Nitrogen 10 mg/dL (6-20); Calcium 8.8 mg/dL (8.6-10.4); Carbon Dioxide 26 mmol/L (22-30); Chloride 99 mmol/L (96-108); Globulin 3.4 gm/dL (2.2-3.7); Glomerular Filtration Rate 102; Glucose 98 mg/dL (70-105)
[2022-07-20] MEDS: levETIRAcetam 500 MG TABLET PO SCH ×2 (08:38→20:27)
[2022-07-20] MEDS: HEPARIN 5,000 UNIT/ML VIAL SQ SCH (08:38)
[2022-07-20] MEDS: NICOTINE 21 MG PATCH TOPICAL SCH (08:38)
[2022-07-20] MEDS: LISINOPRIL 10 MG TABLET PO SCH (08:38)
[2022-07-20] MEDS: amLODIPine 5 MG TABLET PO SCH (08:38)
[2022-07-20] MEDS: DOCUSATE SODIUM 100 MG CAPSULE PO SCH ×2 (08:38→18:59)
--- NOTE | 2022-07-20 11:54 | Internal Med Progress Note ---
SUBJECTIVE Subjective Patient information: Note initiated : 07/20/22 at 11:43 am Service Date, if different from initiated Date: [] Patient: Jabier Hubbard a 47 y/o M admitted on 07/16/22 for Fever, Cellulitis, penile bleeding. Chief Complaint: [] Interval history: Mr. Hubbard is a 47 year old M Here with left leg redness and swelling. fever and hematuria concerned he may have kidney stones. Patient recently moved down from [place] to help with his daughter's probation. 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 His girlfriend told him he had to make a decision between her and her family and his daughter so he decided to stay in [place]. Patient states about 3 weeks ago he received a spider bite to the left lateral lower leg. He said it was improving however he says he noticed that after he went to the [facility] health and welfare office to get food stamps and when he came home sometime he noticed that he was increasingly red and swollen and painful. He also complains of productive cough of thick yellow sputum over the past 2 to 3 days. Has a chronic cough no change. He is also complained of fevers and chills and nausea but no vomiting. Patient has not been on his blood pressure medications or Keppra for the past 3 months because he ran out and does not have a primary care doctor anymore Patient uses methamphetamine, smokes and denies IV use. Says it helps with his chronic pain. In the ED he was evaluated in the did not appear to be any fluctuance or drainage, abscess. X-ray showed no osteo. Patient was tachycardic and tachypneic and febrile. CT abdomen pelvis showed nonobstructing kidney stones on the left. Showed some perinephric stranding around both kidneys that was nonspecific with a differential of chronic scar versus inflammation. Patient does not have any flank pain and UA unconcerning for infection. In the ED they placed a Philippe and immediately received blood and blood clots into the bag which is now clearing up. Procalcitonin elevated at 0.7 Patient started on Vanco and Rocephin in the ED. 07/17 Patient drowsy. Complaining of back pain and leg pain. One of the blood cultures are positive for gram-positive cocci in clusters in anaerobic bottle of set. Leukocytosis still high but improving. Hyponatremia present. BUN and creatinine 21/04.3. Hypophosphatemia and hypomagnesemia. will try heat pad for back. 07/18 Patient complains of headache and leg pain. But denies any nausea today. States he slept better. Leukocytosis improving. Patient still febrile overnight but fever curve improving. Hypokalemia. Renal function improving. Low Phos , mag improving. 07/19 Patient complains of poor sleep headache nausea vomiting. Patient states his left leg is more painful. CT of the leg showed cellulitis but no deeper infection or abscess. Patient leg does not look more swollen although he has been on IV fluids and off his diuretics. Renal function has been much improved we will give albumin with Lasix given his low albumin and elevated leg. Strep pyogenes on cultures and will give clindamycin for toxin production. 07/20: 2D echocardiogram did not show any obvious valvular vegetations. Repeat blood culture no growth to date. Patient has been afebrile overnight. Patient denies having any more homicidal or suicidal ideations or asked. No self-harm behavior this morning. With starting Zoloft and trazodone in the morning and at bedtime, respectively, as per telepsych recommendations. We will request telepsych to see the patient again today. Removed morphine. Remove Philippe catheter. Continue IV antibiotics with Zosyn and clindamycin for bacteremia and left leg cellulitis, respectively. Clindamycin will be finished by tomorrow while we will do 2 weeks total of antibiotics for bacteremia, will do IV Zosyn for the time being and will switch to oral antibiotics at time of discharge. Constitutional Vitals: Vital Signs Temp Pulse Resp BP Pulse Ox O2 Del Method O2 Flow Rate 36.4 C 71 20 149/92 96 Room Air 0 07/20/22 07:35 07/20/22 07:35 07/20/22 07:35 07/20/22 07:35 07/20/22 07:35 07/20/22 07:35 07/16/22 04:01 Period Temp Pulse Resp BP Sys/Long Pulse Ox O2 Del Method O2 Flow Rate Last 24 Hr 36.4 C-36.8 C 65-80 16-20 127-149/78-94 94-99 Room Air-Room Air Intake and Output 07/19/22 07/20/22 07/20/22 19:59 03:59 11:59 Intake Total 150 100 700 Output Total 4050 1075 Balance -3900 100 -375 Weight 119.975 kg Intake & Output: Intake & Output 07/19/22 07/20/22 07/20/22 19:59 03:59 11:59 Intake Total 150 100 700 Output Total 4050 1075 Balance -3900 100 -375 Weight 119.975 kg Intake: IV 150 100 100 Zosyn 3.375 gm In Dextrose 5% 100 50 50 in Water 50 ml @ 100 mls/hr IV Q6H [facility] Rx#:[id number] Oral 600 Output: Urine Catheter Amount 4050 1075 Other: Meal Lunch Breakfast Percent of Meal Consumed 100% 100% Feeding Ability Independent Independent Urine Appearance Clear Clear Uretheral (Philippe) Clear Clear Urine Color Pale Yellow Uretheral (Philippe) Dark Yellow Yellow Urine Odor Normal Stool Size Moderate Stool Color Brown Stool Consistency Loose # Bowel Movements 1 General appearance: cooperative Head Head exam: Present atraumatic and normal inspection Eye Eye exam: Present normal appearance ENT ENT exam: Present mucous membranes moist, normal exam and normal external ear exam Neck Neck exam: Present normal inspection Respiratory Respiratory exam: Present normal respiratory exam Cardiovascular Cardiovascular exam: Present normal rate and rhythm GI/Abdominal GI/Abdominal exam: Present normal bowel sounds Extremities Exam Additional comments: Left lower leg covered by surgical dressing Back Exam Back exam: Present normal inspection Neurological Exam Neurological exam: Present alert and oriented X3 Skin Skin exam: Present warm Additional comments: Left lower leg covered by surgical dressing OBJ DATA Labs 07/20/22 05:54 07/20/22 05:54 Labs: Abnormal Lab Results 07/20/22 07/20/22 07/20/22 05:55 05:54 05:54 WBC RBC 3.87 L Hgb 11.3 L Hct 33.9 L Immature Gran % (Auto) 1.0 H Neut % (Auto) Lymph % (Auto) 10.2 L Lymph # (Auto) 1.06 L [place] # (Auto) Immature Gran # 0.10 H Absolute Neutrophils 8.08 H Potassium Calcium Phosphorus Alkaline Phosphatase 136 H C-Reactive Protein Albumin 3.0 L Albumin/Globulin Ratio 0.9 L Procalcitonin 0.27 H 07/20/22 07/19/22 07/18/22 05:54 05:59 09:12 WBC RBC Hgb Hct Immature Gran % (Auto) Neut % (Auto) Lymph % (Auto) Lymph # (Auto) [place] # (Auto) Immature Gran # Absolute Neutrophils Potassium Calcium 8.4 L Phosphorus Alkaline Phosphatase C-Reactive Protein 10.00 H 12.80 H 18.60 H Albumin 2.7 L Albumin/Globulin Ratio 0.8 L Procalcitonin 07/18/22 07/18/22 07/18/22 05:30 05:30 05:30 WBC 13.4 H RBC 3.87 L Hgb 11.6 L Hct 34.6 L Immature Gran % (Auto) Neut % (Auto) 84.7 H Lymph % (Auto) 7.2 L Lymph # (Auto) 0.97 L [place] # (Auto) 0.91 H Immature Gran # 0.06 H Absolute Neutrophils 11.37 H Potassium 3.1 L Calcium 8.1 L Phosphorus 2.0 L Alkaline Phosphatase C-Reactive Protein Albumin 2.8 L Albumin/Globulin Ratio 0.9 L Procalcitonin 0.64 H Meds: Medications Acetaminophen (Acetaminophen 325 Mg Tablet) 650 mg PO Q6HP PRN; Protocol PRN Reason: Per Pain Protocol/Fever > 101 Last Admin: 07/16/22 23:32 Dose: 650 mg Hydrocodone Bitart/Acetaminophen (Hydrocodone/Apap 5/325mg Tablet) 1 tab PO Q4HP PRN PRN Reason: PAIN LEVEL 3-6 Last Admin: 07/19/22 17:22 Dose: 1 tab Albuterol/Ipratropium (Ipratropium/Albuterol 3 Ml Ampul.Neb) 3 ml NEB Q4HP PRN PRN Reason: Shortness Of Breath Amlodipine Besylate (Amlodipine 5 Mg Tablet) 5 mg PO QDAY [facility] Last Admin: 07/20/22 08:38 Dose: 5 mg Docusate Sodium (Docusate Sodium 100 Mg Capsule) 100 mg PO BID [facility] Last Admin: 07/20/22 08:38 Dose: 100 mg Heparin Sodium (Porcine) (Heparin 5,000 Unit/Ml Vial) 5,000 unit SQ Q12 [facility] Last Admin: 07/20/22 08:38 Dose: 5,000 unit Hydralazine HCl (Hydralazine 20 Mg/Ml Vial) 0 mg IV Q2HP PRN PRN Reason: Hypertension Last Admin: 07/18/22 16:54 Dose: 10 mg Potassium Chloride 40 meq/ (Dextrose) 520 mls @ 130 mls/hr IV UD PRN PRN Reason: Potassium < 3 Magnesium Sulfate (Magnesium Sulfate) 2 gm in 50 mls @ 50 mls/hr IV UD PRN PRN Reason: Magnesium </= 1.6 Piperacillin Sod/Tazobactam (Sod 3.375 gm/ Dextrose) 50 mls @ 100 mls/hr IV Q6H [facility]; Protocol Last Infusion: 07/20/22 07:49 Dose: Infused CLINDAMYCIN IN 0.9 % SOD CHLOR (Clindamycin 600 Mg/50 Ml-Ns) 600 mg in 50 mls @ 100 mls/hr IV Q8H [facility] Stop: 07/21/22 02:29 Last Infusion: 07/20/22 06:58 Dose: Infused Labetalol HCl (Labetalol 5 Mg/Ml Ml) 0 mg IV Q2HP PRN PRN Reason: Hypertension Levetiracetam (Levetiracetam 500 Mg Tablet) 1,500 mg PO BID [facility] Last Admin: 07/20/22 08:38 Dose: 1,500 mg Lisinopril (Lisinopril 10 Mg Tablet) 10 mg PO QDAY [facility] Last Admin: 07/20/22 08:38 Dose: 10 mg Nicotine (Nicotine 21 Mg Patch) 21 mg TOPICAL DAILY@0900 [facility] Last Admin: 07/20/22 08:38 Dose: 21 mg Ondansetron HCl (Ondansetron 4 Mg/2 Ml Vial) 4 mg IV Q4HP PRN PRN Reason: Nausea And Vomiting Last Admin: 07/18/22 21:16 Dose: 4 mg Polyethylene Glycol (Polyethylene Glycol 3350 17 Gm Packet) 17 gm PO DAILYP PRN PRN Reason: Constipation Last Admin: 07/20/22 03:47 Dose: 17 gm Potassium Chloride (Potassium Chloride 20 Meq Tablet) 40 meq PO UD PRN PRN Reason: Potssium is 3-3.5 Potassium Chloride (Potassium Chloride 20 Meq Tablet) 40 meq PO UD PRN PRN Reason: Potassium < 3 Senna (Sennosides 1 Tablet) 2 tab PO DAILYP PRN PRN Reason: Constipation Sertraline HCl (Sertraline 50 Mg Tablet) 50 mg PO DAILY [facility] Sodium Chloride (0.9 % Sodium Chloride 10 Ml Syringe) 10 ml IV Q8 [facility] Last Admin: 07/20/22 04:14 Dose: 10 ml Trazodone HCl (Trazodone Hcl 50 Mg Tablet) 50 mg PO HS [facility] A/P Assessment and plan (1) Methamphetamine abuse: Status: Acute (2) Cellulitis of left leg: Status: Acute (3) Coagulase negative Staphylococcus bacteremia: Status: Acute (4) Seizure: Status: Acute (5) Essential hypertension: Status: Acute (6) Major depressive disorder without psychotic features: Status: Acute Narrative A/P Narrative: Assessment and Plans: 1. Left lower extremity cellulitis: Wound culture: Strep pyogenes Clindamycin IV until 07/21 Wound care team for wound care cbc w/ auto diff in the morning to trend WBC 2. Coagulase negative staph bacteremia: 2D echocardiogram no obvious valvular vegetations Repeat blood cultures no growth to date Zosyn IV for 2 week, okay to switch to oral antibiotics at time of discharge 3. Major depressive disorder without psychotic features: Request tele-psychiatry for reconsultation Resume Zoloft Resume Trazodone 4. h/o seizure: Continue Keppra 5. Essential hypertension: Norvasc Lisinopril 6. Methamphetamine abuse: Continue to monitor GI ppx: Not currently indicated DVT ppx: Lovenox Code status: Full Prognosis: guarded Disposition: inpatient med surg Time Spent With Patient Time: Total time spent is greater than 50% in coordination of care (as documented) at patient's floor/unit and/or counseling patient: Subsequent: Total time with patient: 35 - 49 minutes QUALITY Stroke Symptom Onset Unknown: No VTE Deep Vein Thrombosis/Pulmonary Embolism Present on Admission: No
[2022-07-20] MEDS: SERTRALINE 50 MG TABLET PO SCH (12:00)
[2022-07-20] MEDS: HYDROcodone/APAP 5/325MG TABLET PO PRN ×2 (16:25→20:26)
[2022-07-20] MEDS ORDERED: traZODone HCL 50 MG TABLET PO PRN (20:58)
[2022-07-20] MEDS ORDERED: HALOPERIDOL LACTATE 5 MG/ML VIAL IV PRN (20:59)
[2022-07-20] MEDS ORDERED: traZODone HCL 50 MG TABLET PO SCH (21:00)
--- NOTE | 2022-07-20 21:11 | Behavioral Health Consult ---
HPI History of Present Illness Patient information: Note initiated : 07/20/22 at 9:08 pm Service Date, if different from initiated Date: [] Patient: Jabier Hubbard 47 y/o M admitted on 07/16/22 for Fever, Cellulitis, penile bleeding. Chief Complaint: [] Chief complaint: homicidal History of present illness: Name: Jabier Hubbard :77 Date: 07/20/22 Time:11:45pm Location of patient: [facility] Location of doctor:[place] Length of consult:30min This evaluation was conducted via telepsychiatry with the assistance of onsite staff.. Interim History:PT is a 47y/o male with h/o polysubstance abuse currently on medical unit due to sepsis and cellulitis following a spider bit. PT has been very irritable, minimally compliant and demanding of morphine. HE has had suicidal and homicidal thoughts along with a prior suicide attempt last month. HE is now denying further suicidal thoughts but said he wants to harm people that screw things up for him. HE referenced a nurse that would not give him morphine as he wanted. When asked how he planned to deal with his pain upon discharge, he said he would use high doses of marijuana and methamphetamine. When asked about hallucinations, he said he has 46 times and that he sees spirits. HE continues to endorse homicidal thoughts. Psych Meds:Zoloft 50mg po qd Trazodone 50mg po qhs Diagnosis: schizoaffective d/o by history Opiate use d/o Cannabis use d/o Unspecified personality disorder Mental Status Exam: Appearance and attire:unkempt, unshaven Attitude and behavior: irritable and threatening Speech: nl r/r/vol Affect and mood in pain with a labile affect Association and thought processes: perseverating on getting morphine and having his demands met Thought content: homicidal Perception: seeing spirits Sensorium, memory, and orientation: grossly oriented Intellectual functioning:low average Insight and judgment:poor PFSH PFSH All Active Problems (Updated 07/20/22 @ 21:12 by Ceci Avila MD) Personality disorder (Acute) Schizoaffective disorder (Acute) Major depressive disorder without psychotic features (Acute) Methamphetamine abuse (Acute) Cigarette smoker (Acute) Anemia, normocytic normochromic (Acute) Essential hypertension (Acute) Coagulase negative Staphylococcus bacteremia (Acute) Seizure (Acute) Sepsis (Acute) Cellulitis of left leg (Acute) Acute dehydration (Acute) Hematuria (Acute) Social History smoking status: Current every day smoker MEDS/ALLERGIES Home Medications and Allergies Home Medications Medication Instructions Recorded Confirmed Type amlodipine 5 mg tablet 5 mg PO QDAY 07/16/22 07/16/22 History levetiracetam 750 mg tablet 1,500 mg PO BID 07/16/22 07/16/22 History lisinopril 10 mg tablet 10 mg PO QDAY 07/16/22 07/16/22 History Allergies Allergy/AdvReac Type Severity Reaction Status Date / Time bee venom protein (honey bee) Allergy Anaphylaxis Verified 07/16/22 04:06 titanium Allergy Anaphylaxis Verified 07/16/22 04:06 Physical Examination Vital Signs Vital signs: Temp Pulse Resp BP Pulse Ox O2 Del Method O2 Flow Rate 97.3 F 76 20 145/89 96 Room Air 0 07/20/22 19:45 07/20/22 19:45 07/20/22 19:45 07/20/22 19:45 07/20/22 19:45 07/20/22 19:45 07/16/22 04:01 Results Laboratory Findings 07/20/22 05:54 07/20/22 05:54 Abnormal lab findings: Abnormal Labs 07/16/22 07/16/22 07/16/22 04:10 04:10 04:20 WBC 36.7 H* RBC Hgb Hct Immature Gran % (Auto) 1.8 H Neut % (Auto) 93.4 H Lymph % (Auto) 1.4 L Lymph # (Auto) 0.50 L [place] # (Auto) 1.13 H Immature Gran # 0.67 H Absolute Neutrophils 34.32 H POC VBG pH 7.45 H POC VBG pCO2 at Temp 40.5 L POC VBG pO2 23 L POC VBG HCO3 28.1 H POC VBG Base Excess 4.0 H* Sodium Potassium POC Chloride 95 L Chloride POC BUN 21 H BUN Creatinine POC Creatinine 1.3 H POC Glucose 119 H Calcium POC WB Ioniz Calcium 1.09 L Phosphorus Magnesium Total Bilirubin Direct Bilirubin Alkaline Phosphatase C-Reactive Protein Albumin Albumin/Globulin Ratio Procalcitonin Urine Appearance Urine Protein Urine Urobilinogen Urine RBC Urine WBC Ur Amphetamines Screen U Marijuana (THC) Screen 0407/16/22 07/16/22 04:20 04:20 06:07 WBC RBC Hgb Hct Immature Gran % (Auto) Neut % (Auto) Lymph % (Auto) Lymph # (Auto) [place] # (Auto) Immature Gran # Absolute Neutrophils POC VBG pH POC VBG pCO2 at Temp POC VBG pO2 POC VBG HCO3 POC VBG Base Excess Sodium Potassium POC Chloride Chloride POC BUN BUN Creatinine POC Creatinine POC Glucose Calcium POC WB Ioniz Calcium Phosphorus Magnesium Total Bilirubin 1.1 H Direct Bilirubin Alkaline Phosphatase C-Reactive Protein Albumin Albumin/Globulin Ratio Procalcitonin 0.68 H Urine Appearance Cloudy A Urine Protein 30 A Urine Urobilinogen 2.0 A Urine RBC > 100 H Urine WBC 6 H Ur Amphetamines Screen U Marijuana (THC) Screen 07/16/22 07/17/22 07/17/22 06:08 05:25 05:25 WBC 20.7 H RBC 4.19 L Hgb 12.6 L Hct 38.0 L Immature Gran % (Auto) 1.1 H Neut % (Auto) 90.9 H Lymph % (Auto) 4.0 L Lymph # (Auto) 0.83 L [place] # (Auto) Immature Gran # 0.23 H Absolute Neutrophils 18.82 H POC VBG pH POC VBG pCO2 at Temp POC VBG pO2 POC VBG HCO3 POC VBG Base Excess Sodium 127 L Potassium POC Chloride Chloride 93 L POC BUN BUN 24 H Creatinine 1.3 H POC Creatinine POC Glucose Calcium 8.2 L POC WB Ioniz Calcium Phosphorus 1.9 L Magnesium 1.4 L Total Bilirubin Direct Bilirubin 0.4 H Alkaline Phosphatase C-Reactive Protein Albumin Albumin/Globulin Ratio Procalcitonin Urine Appearance Urine Protein Urine Urobilinogen Urine RBC Urine WBC Ur Amphetamines Screen Suspect positive A U Marijuana (THC) Screen Suspect positive A 07/17/22 07/18/22 07/18/22 05:25 05:30 05:30 WBC 13.4 H RBC 3.87 L Hgb 11.6 L Hct 34.6 L Immature Gran % (Auto) Neut % (Auto) 84.7 H Lymph % (Auto) 7.2 L Lymph # (Auto) 0.97 L [place] # (Auto) 0.91 H Immature Gran # 0.06 H Absolute Neutrophils 11.37 H POC VBG pH POC VBG pCO2 at Temp POC VBG pO2 POC VBG HCO3 POC VBG Base Excess Sodium Potassium 3.1 L POC Chloride Chloride POC BUN BUN Creatinine POC Creatinine POC Glucose Calcium 8.1 L POC WB Ioniz Calcium Phosphorus 2.0 L Magnesium Total Bilirubin Direct Bilirubin Alkaline Phosphatase C-Reactive Protein Albumin 2.8 L Albumin/Globulin Ratio 0.9 L Procalcitonin 1.10 H Urine Appearance Urine Protein Urine Urobilinogen Urine RBC Urine WBC Ur Amphetamines Screen U Marijuana (THC) Screen 07/18/22 07/18/22 07/19/22 05:30 09:12 05:59 WBC RBC Hgb Hct Immature Gran % (Auto) Neut % (Auto) Lymph % (Auto) Lymph # (Auto) [place] # (Auto) Immature Gran # Absolute Neutrophils POC VBG pH POC VBG pCO2 at Temp POC VBG pO2 POC VBG HCO3 POC VBG Base Excess Sodium Potassium POC Chloride Chloride POC BUN BUN Creatinine POC Creatinine POC Glucose Calcium 8.4 L POC WB Ioniz Calcium Phosphorus Magnesium Total Bilirubin Direct Bilirubin Alkaline Phosphatase C-Reactive Protein 18.60 H 12.80 H Albumin 2.7 L Albumin/Globulin Ratio 0.8 L Procalcitonin 0.64 H Urine Appearance Urine Protein Urine Urobilinogen Urine RBC Urine WBC Ur Amphetamines Screen U Marijuana (THC) Screen 07/20/22 07/20/22 07/20/22 05:54 05:54 05:54 WBC RBC 3.87 L Hgb 11.3 L Hct 33.9 L Immature Gran % (Auto) 1.0 H Neut % (Auto) Lymph % (Auto) 10.2 L Lymph # (Auto) 1.06 L [place] # (Auto) Immature Gran # 0.10 H Absolute Neutrophils 8.08 H POC VBG pH POC VBG pCO2 at Temp POC VBG pO2 POC VBG HCO3 POC VBG Base Excess Sodium Potassium POC Chloride Chloride POC BUN BUN Creatinine POC Creatinine POC Glucose Calcium POC WB Ioniz Calcium Phosphorus Magnesium Total Bilirubin Direct Bilirubin Alkaline Phosphatase 136 H C-Reactive Protein 10.00 H Albumin 3.0 L Albumin/Globulin Ratio 0.9 L Procalcitonin Urine Appearance Urine Protein Urine Urobilinogen Urine RBC Urine WBC Ur Amphetamines Screen U Marijuana (THC) Screen 07/20/22 05:55 WBC RBC Hgb Hct Immature Gran % (Auto) Neut % (Auto) Lymph % (Auto) Lymph # (Auto) [place] # (Auto) Immature Gran # Absolute Neutrophils POC VBG pH POC VBG pCO2 at Temp POC VBG pO2 POC VBG HCO3 POC VBG Base Excess Sodium Potassium POC Chloride Chloride POC BUN BUN Creatinine POC Creatinine POC Glucose Calcium POC WB Ioniz Calcium Phosphorus Magnesium Total Bilirubin Direct Bilirubin Alkaline Phosphatase C-Reactive Protein Albumin Albumin/Globulin Ratio Procalcitonin 0.27 H Urine Appearance Urine Protein Urine Urobilinogen Urine RBC Urine WBC Ur Amphetamines Screen U Marijuana (THC) Screen Microbiology: Microbiology 07/18/22 05:30 Blood Blood Culture - Preliminary 07/18/22 05:24 Blood Blood Culture - Preliminary 07/16/22 04:35 Blood Blood Culture - Preliminary 07/16/22 09:52 Leg - Left Gram Stain - Final 07/16/22 09:52 Leg - Left Wound Culture - Final Strep pyogenes (grp a) 07/16/22 04:20 Blood Blood Culture - Preliminary Coagulase negative staph 07/17/22 09:15 Nose MRSA (PCR) - Final A/P Assessment and plan (1) Schizoaffective disorder: Status: Acute (2) Personality disorder: Status: Acute Plan Risk Assessment: PT currently presents labile, threatening, demanding and homicidal. HE continues to present a danger to self and others due to mood lability, poor impulse control and drug seeking. HE endorsed feeling paranoid and seeing spirits. HE is not safe for discharge and should be involuntarily committed to inpatient psych once medically stabilized. Plan: 1. Recommend involuntary admit to inpatient psych dual dx for mood stabilization, substance treatment and safety once medically cleared. 2. Continue 1:1 3. Start Zyprexa 10mg po qhs 4. Change Trazodone to prn 5. Haldol 5mg po/im q 4h prn severe agitation/psychosis * patient discussed with Dr Holcomb Time Spent With Patient Time: Total time spent is greater than 50% in coordination of care (as documented) at patient's floor/unit and/or counseling patient: Initial: Total time with patient: Less than 40 minutes Subsequent: Total time with patient: Less than 25 minutes
[2022-07-20] MEDS: OLANZapine 5 MG TABLET PO SCH (21:24)
[2022-07-21] MEDS: PIPERACILLIN SODIUM/TAZOBACTAM 3.375 GM in DEXTROSE 5% IN WATER 50 ML IV SCH ×3 (05:32→17:54)
[2022-07-21] MEDS: 0.9 % SODIUM CHLORIDE 10 ML SYRINGE IV SCH ×3 (05:34→20:38)
[2022-07-21 06:19] LABS: Basophils # (Auto) 0.08 K/mcL (0.00-0.30); Basophils % (Auto) 0.8 % (0.0-2.0); Eosinophils # (Auto) 0.32 K/mcL (0.00-0.70); Eosinophils % (Auto) 3.1 % (0.0-7.0); Hematocrit 34.3 % (40.1-51.0); Hemoglobin 11.7 g/dL (13.7-17.5); Lymphocytes # (Auto) 1.43 K/mcL (1.50-4.80); Lymphocytes % (Auto) 13.8 % (15.5-49.0); Mean Cell Volume 87.1 fL (80.0-100.0); Mean Corpuscular HGB Conc 34.1 g/dL (31.0-36.0); Monocytes # (Auto) 0.72 K/mcL (0.10-0.90); Neutrophils % (Auto) 73.6 % (38.0-78.0); Platelet Count 274 K/mcL (140-440); RBC 3.94 M/mcL (4.63-6.08); Red Cell Distribution Width 13.4 % (11.5-14.5); WBC 10.3 K/mcL (4.5-11.0)
[2022-07-21 06:39] LABS: ALT/SGPT 12 U/L (<40); AST/SGOT 15 U/L (<40); Albumin 2.8 gm/dL (3.2-5.2); Albumin/Globulin Ratio 0.8 (1.0-2.3); Alkaline Phosphatase 129 U/L (39-117); Bilirubin,Total 0.4 mg/dL (0.1-1.0); Blood Urea Nitrogen 10 mg/dL (6-20); Calcium 8.4 mg/dL (8.6-10.4); Carbon Dioxide 27 mmol/L (22-30); Chloride 104 mmol/L (96-108); Globulin 3.5 gm/dL (2.2-3.7); Glomerular Filtration Rate 107; Glucose 87 mg/dL (70-105)
[2022-07-21] MEDS: SERTRALINE 50 MG TABLET PO SCH (10:34)
[2022-07-21] MEDS: levETIRAcetam 500 MG TABLET PO SCH ×2 (10:34→20:36)
[2022-07-21] MEDS: LISINOPRIL 10 MG TABLET PO SCH (10:34)
[2022-07-21] MEDS: amLODIPine 5 MG TABLET PO SCH (10:34)
[2022-07-21] MEDS: DOCUSATE SODIUM 100 MG CAPSULE PO SCH ×2 (10:35→20:37)
[2022-07-21] MEDS: ENOXAPARIN 40 MG/0.4 ML SYRINGE SQ SCH (10:35)
[2022-07-21] MEDS: HYDROcodone/APAP 5/325MG TABLET PO PRN ×3 (10:35→20:36)
--- NOTE | 2022-07-21 10:35 | General Surgery Consult Note ---
HPI Date of Consult Consult Date: 07/21/22 Requesting physician: Efrain Holcomb Consult Narrative Patient Information: Note initiated : 07/21/22 at 10:30 am Service Date, if different from initiated Date: [] Patient: Jabier Hubbard 47 y/o M admitted on 07/16/22 for Fever, Cellulitis, penile bleeding. Chief Complaint: [] Chief complaint: Chronic open wound LEFT mid lateral leg.. Reason for consult: Wound evaluation and management. cc:: I saw this patient along with Romelia Whipple RNurgent care technician Nurse Research Physiologist, CC: Jasen Rubin Review of Systems All systems: reviewed and no additional remarkable complaints except as stated (PATIENT is awake but wants to be left alone. NON conversational. ) Constitutional Constitutional: Present as per HPI and other (Chronic wound LEFT lateral mid leg. Spider bite versus iatrogenic . H/o Substance abuse.) PFSH PFSH All Active Problems Personality disorder (Acute) Schizoaffective disorder (Acute) Major depressive disorder without psychotic features (Acute) Methamphetamine abuse (Acute) Cigarette smoker (Acute) Anemia, normocytic normochromic (Acute) Essential hypertension (Acute) Coagulase negative Staphylococcus bacteremia (Acute) Seizure (Acute) Sepsis (Acute) Cellulitis of left leg (Acute) Acute dehydration (Acute) Hematuria (Acute) Social History smoking status: Current every day smoker MEDS/ALLERGIES Home Medications and Allergies Home Medications Medication Instructions Recorded Confirmed Type amlodipine 5 mg tablet 5 mg PO QDAY 07/16/22 07/16/22 History levetiracetam 750 mg tablet 1,500 mg PO BID 07/16/22 07/16/22 History lisinopril 10 mg tablet 10 mg PO QDAY 07/16/22 07/16/22 History Allergies Allergy/AdvReac Type Severity Reaction Status Date / Time bee venom protein (honey bee) Allergy Severe Anaphylaxis Verified 07/21/22 06:38 titanium Allergy Severe Anaphylaxis Verified 07/21/22 06:38 Physical Examination Vital Signs Vital signs: Temp Pulse Resp BP Pulse Ox O2 Del Method O2 Flow Rate 98.2 F 72 16 148/88 94 Room Air 0 07/21/22 08:00 07/21/22 08:00 07/21/22 08:00 07/21/22 08:00 07/21/22 08:00 07/21/22 08:00 07/16/22 04:01 General physical appearance General physical exam: well developed, well nourished, no distress and no pain Eyes Eye exam: PERRL and normal ocular movement ENT ENT exam: normal pinna, normal nares, normal mucosa and no congestion Head Head exam IM: Present atraumatic and normocephalic Neck Neck exam: no masses and no venous distension Cardiovascular Cardiovascular exam IM: Present normal rate and rhythm Peripheral pulses: 3+/4+: dorsalis pedis (L) and posterior tibialis (L) Respiratory Respiratory exam: normal respiratory effort and clear to auscultation Abdomen Abdomen: Present soft, non tender and bowel sounds Integumentary Integumentary: Present other (Resolving cellulits and lymphangitis around LEFT mid lateral leg wound. ? Spider bite versus iatrogenic. NO purulence, NO warmth, No odor, NON fluctuant. This is a crhonic wound Stage 2 with involvement of epidermis. It extedns to deep dermis. Size 4 x 4 CM Round to oval , NO sings of aggresive surg) Musculoskeletal Musculoskeletal: Present other (Lymhedema of LEGS, Left > Right. ) Psychiatric Psychiatric: Present speech is normal and other (Multiple psych and behavioral issues. See consults from Psychiatrist and Psychologist) Additional Findings Additional exam: REviewed results of blood works and imaging studies. Results Labs 07/21/22 05:44 07/21/22 05:36 Labs: Abnormal lab results 07/21/22 07/21/22 Range/Units 05:36 05:44 RBC 3.94 L (4.63-6.08) M/mcL Hgb 11.7 L (13.7-17.5) g/dL Hct 34.3 L (40.1-51.0) % Immature Gran % (Auto) 1.7 H (0.0-0.5) % Lymph % (Auto) 13.8 L (15.5-49.0) % Lymph # (Auto) 1.43 L (1.50-4.80) K/mcL Immature Gran # 0.18 H (0.00-0.05) K/mcl Calcium 8.4 L (8.6-10.4) mg/dL Alkaline Phosphatase 129 H (39-117) U/L Albumin 2.8 L (3.2-5.2) gm/dL Albumin/Globulin Ratio 0.8 L (1.0-2.3) Diabetes panel 07/21/22 Range/Units 05:36 Sodium 140 (133-145) mmol/L Potassium 3.5 (3.3-5.1) mmol/L Chloride 104 (96-108) mmol/L Carbon Dioxide 27 (22-30) mmol/L BUN 10 (6-20) mg/dL Creatinine 0.8 (0.7-1.2) mg/dL Glucose 87 (70-105) mg/dL Calcium 8.4 L (8.6-10.4) mg/dL AST 15 (<40) U/L ALT 12 (<40) U/L Alkaline Phosphatase 129 H (39-117) U/L Total Protein 6.3 (5.9-8.4) gm/dL Albumin 2.8 L (3.2-5.2) gm/dL Calcium panel 07/21/22 Range/Units 05:36 Calcium 8.4 L (8.6-10.4) mg/dL Albumin 2.8 L (3.2-5.2) gm/dL Pituitary panel 07/21/22 Range/Units 05:36 Sodium 140 (133-145) mmol/L Potassium 3.5 (3.3-5.1) mmol/L Chloride 104 (96-108) mmol/L Carbon Dioxide 27 (22-30) mmol/L BUN 10 (6-20) mg/dL Creatinine 0.8 (0.7-1.2) mg/dL Glucose 87 (70-105) mg/dL Calcium 8.4 L (8.6-10.4) mg/dL Adrenal panel 07/21/22 Range/Units 05:36 Sodium 140 (133-145) mmol/L Potassium 3.5 (3.3-5.1) mmol/L Chloride 104 (96-108) mmol/L Carbon Dioxide 27 (22-30) mmol/L BUN 10 (6-20) mg/dL Creatinine 0.8 (0.7-1.2) mg/dL Glucose 87 (70-105) mg/dL Calcium 8.4 L (8.6-10.4) mg/dL Total Bilirubin 0.4 (0.1-1.0) mg/dL AST 15 (<40) U/L ALT 12 (<40) U/L Alkaline Phosphatase 129 H (39-117) U/L Total Protein 6.3 (5.9-8.4) gm/dL Albumin 2.8 L (3.2-5.2) gm/dL All other labs normal. A/P Narrative A/P Narrative: Assessment: Resolving cellulitis CSSSI LEFT lateral mid leg. Multiple behavioral and psych issues. Plan of Treatment: Plan: Local wound care. See wound care orders entered. if d/c see again f/u at wound clinic in ONE week. Time Spent With Patient Time: Total time spent is greater than 50% in coordination of care (as documented) at patient's floor/unit and/or counseling patient: Initial: Total time with patient: Less than 40 minutes
[2022-07-21] MEDS: NICOTINE 21 MG PATCH TOPICAL SCH (10:37)
--- NOTE | 2022-07-21 12:02 | Internal Med Progress Note ---
SUBJECTIVE Subjective Patient information: Note initiated : 07/21/22 at 11:56 am Service Date, if different from initiated Date: [] Patient: Jabier Hubbard a 47 y/o M admitted on 07/16/22 for Fever, Cellulitis, penile bleeding. Chief Complaint: [] Interval history: Mr. Hubbard is a 47 year old M Here with left leg redness and swelling. fever and hematuria concerned he may have kidney stones. Patient recently moved down from [place] to help with his daughter's probation. 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 His girlfriend told him he had to make a decision between her and her family and his daughter so he decided to stay in [place]. Patient states about 3 weeks ago he received a spider bite to the left lateral lower leg. He said it was improving however he says he noticed that after he went to the [facility] health and welfare office to get food stamps and when he came home sometime he noticed that he was increasingly red and swollen and painful. He also complains of productive cough of thick yellow sputum over the past 2 to 3 days. Has a chronic cough no change. He is also complained of fevers and chills and nausea but no vomiting. Patient has not been on his blood pressure medications or Keppra for the past 3 months because he ran out and does not have a primary care doctor anymore Patient uses methamphetamine, smokes and denies IV use. Says it helps with his chronic pain. In the ED he was evaluated in the did not appear to be any fluctuance or drainage, abscess. X-ray showed no osteo. Patient was tachycardic and tachypneic and febrile. CT abdomen pelvis showed nonobstructing kidney stones on the left. Showed some perinephric stranding around both kidneys that was nonspecific with a differential of chronic scar versus inflammation. Patient does not have any flank pain and UA unconcerning for infection. In the ED they placed a Philippe and immediately received blood and blood clots into the bag which is now clearing up. Procalcitonin elevated at 0.7 Patient started on Vanco and Rocephin in the ED. 07/17 Patient drowsy. Complaining of back pain and leg pain. One of the blood cultures are positive for gram-positive cocci in clusters in anaerobic bottle of set. Leukocytosis still high but improving. Hyponatremia present. BUN and creatinine /.3. Hypophosphatemia and hypomagnesemia. will try heat pad for back. 07/18 Patient complains of headache and leg pain. But denies any nausea today. States he slept better. Leukocytosis improving. Patient still febrile overnight but fever curve improving. Hypokalemia. Renal function improving. Low Phos , mag improving. 07/19 Patient complains of poor sleep headache nausea vomiting. Patient states his left leg is more painful. CT of the leg showed cellulitis but no deeper infection or abscess. Patient leg does not look more swollen although he has been on IV fluids and off his diuretics. Renal function has been much improved we will give albumin with Lasix given his low albumin and elevated leg. Strep pyogenes on cultures and will give clindamycin for toxin production. 07/20: 2D echocardiogram did not show any obvious valvular vegetations. Repeat blood culture no growth to date. Patient has been afebrile overnight. Patient denies having any more homicidal or suicidal ideations or asked. No self-harm behavior this morning. With starting Zoloft and trazodone in the morning and at bedtime, respectively, as per telepsych recommendations. We will request telepsych to see the patient again today. Removed morphine. Remove Philippe catheter. Continue IV antibiotics with Zosyn and clindamycin for bacteremia and left leg cellulitis, respectively. Clindamycin will be finished by tomorrow while we will do 2 weeks total of antibiotics for bacteremia, will do IV Zosyn for the time being and will switch to oral antibiotics at time of discharge. 07/21: Patient was being evaluated by telemetry psych who deemed the patient homicidal and recommend involuntary psychiatric facility placement. They also state that the patient would not be allowed to leave AMA. They also recommend adding Zyprexa 10 Mg nightly scheduled. Earlier this morning patient was being evaluated by mental health service and now they deemed the patient not at risk of suicidal or homicidal behavior. The patient's does not qualify for involuntary psychiatric facility admissions. Patient could leave AMA if he chooses to. Patient is currently sleeping very sound. Constitutional Vitals: Vital Signs Temp Pulse Resp BP Pulse Ox O2 Del Method O2 Flow Rate 36.8 C 72 16 148/88 94 Room Air 0 07/21/22 08:00 07/21/22 08:00 07/21/22 08:00 07/21/22 08:00 07/21/22 08:00 07/21/22 08:00 07/16/22 04:01 Period Temp Pulse Resp BP Sys/Long Pulse Ox O2 Del Method O2 Flow Rate Last 24 Hr 36.3 C-36.9 C 70-80 16-20 101-150/54-92 94-98 Room Air-Room Air Intake and Output 07/20/22 07/21/22 07/21/22 19:59 03:59 11:59 Intake Total 1570 100 410 Output Total 500 675 Balance 1070 100 -265 Weight 118.161 kg Intake & Output: Intake & Output 07/20/22 07/21/22 07/21/22 19:59 03:59 11:59 Intake Total 1570 100 410 Output Total 500 675 Balance 1070 100 -265 Weight 118.161 kg Intake: IV 150 100 50 Zosyn 3.375 gm In Dextrose 5% 100 50 50 in Water 50 ml @ 100 mls/hr IV Q6H [facility] Rx#:[id number] Oral 1420 360 Output: Void Amount 500 675 Other: Meal Lunch Breakfast Percent of Meal Consumed Bites 100% Feeding Ability Independent Assist with Tray Set Up Urine Appearance Clear Clear Urine Color Dark Yellow Yellow Urine Odor Strong Strong Stool Size Moderate Stool Color Brown Stool Consistency Liquid # Voids 1 1 1 # Bowel Movements 1 General appearance: cooperative Exam: Sleeping Head Head exam: Present atraumatic and normal inspection Eye Eye exam: Present normal appearance ENT ENT exam: Present mucous membranes moist, normal exam and normal external ear exam Neck Neck exam: Present normal inspection Respiratory Respiratory exam: Present normal respiratory exam Cardiovascular Cardiovascular exam: Present normal rate and rhythm GI/Abdominal GI/Abdominal exam: Present normal bowel sounds Extremities Exam Extremities exam: Present full ROM; Absent normal inspection Additional comments: Left lower leg covered by wound dressing Back Exam Back exam: Present normal inspection Neurological Exam Additional comments: Sleeping Skin Skin exam: Present intact and warm Additional comments: Left lower leg covered by wound dressing OBJ DATA Labs 07/21/22 05:44 07/21/22 05:36 Labs: Abnormal Lab Results 07/21/22 07/21/22 07/20/22 05:44 05:36 05:55 RBC 3.94 L Hgb 11.7 L Hct 34.3 L Immature Gran % (Auto) 1.7 H Lymph % (Auto) 13.8 L Lymph # (Auto) 1.43 L Immature Gran # 0.18 H Absolute Neutrophils Calcium 8.4 L Alkaline Phosphatase 129 H C-Reactive Protein Albumin 2.8 L Albumin/Globulin Ratio 0.8 L Procalcitonin 0.27 H 07/20/22 07/20/22 07/20/22 05:54 05:54 05:54 RBC 3.87 L Hgb 11.3 L Hct 33.9 L Immature Gran % (Auto) 1.0 H Lymph % (Auto) 10.2 L Lymph # (Auto) 1.06 L Immature Gran # 0.10 H Absolute Neutrophils 8.08 H Calcium Alkaline Phosphatase 136 H C-Reactive Protein 10.00 H Albumin 3.0 L Albumin/Globulin Ratio 0.9 L Procalcitonin 07/19/22 05:59 RBC Hgb Hct Immature Gran % (Auto) Lymph % (Auto) Lymph # (Auto) Immature Gran # Absolute Neutrophils Calcium 8.4 L Alkaline Phosphatase C-Reactive Protein 12.80 H Albumin 2.7 L Albumin/Globulin Ratio 0.8 L Procalcitonin Meds: Medications Acetaminophen (Acetaminophen 325 Mg Tablet) 650 mg PO Q6HP PRN; Protocol PRN Reason: Per Pain Protocol/Fever > 101 Last Admin: 07/16/22 23:32 Dose: 650 mg Hydrocodone Bitart/Acetaminophen (Hydrocodone/Apap 5/325mg Tablet) 2 tab PO Q4- 6HP PRN; Protocol PRN Reason: PAIN LEVEL > 6 Last Admin: 07/21/22 10:35 Dose: 2 tab Albuterol/Ipratropium (Ipratropium/Albuterol 3 Ml Ampul.Neb) 3 ml NEB Q4HP PRN PRN Reason: Shortness Of Breath Amlodipine Besylate (Amlodipine 5 Mg Tablet) 5 mg PO QDAY [facility] Last Admin: 07/21/22 10:34 Dose: 5 mg Docusate Sodium (Docusate Sodium 100 Mg Capsule) 100 mg PO BID [facility] Last Admin: 07/21/22 10:35 Dose: 100 mg Enoxaparin Sodium (Enoxaparin 40 Mg/0.4 Ml Syringe) 40 mg SQ DAILY [facility] Last Admin: 07/21/22 10:35 Dose: 40 mg Haloperidol Lactate (Haloperidol Lactate 5 Mg/Ml Vial) 5 mg IV Q6HP PRN PRN Reason: Agitation Hydralazine HCl (Hydralazine 20 Mg/Ml Vial) 0 mg IV Q2HP PRN PRN Reason: Hypertension Last Admin: 07/18/22 16:54 Dose: 10 mg Potassium Chloride 40 meq/ (Dextrose) 520 mls @ 130 mls/hr IV UD PRN PRN Reason: Potassium < 3 Magnesium Sulfate (Magnesium Sulfate) 2 gm in 50 mls @ 50 mls/hr IV UD PRN PRN Reason: Magnesium </= 1.6 Piperacillin Sod/Tazobactam (Sod 3.375 gm/ Dextrose) 50 mls @ 100 mls/hr IV Q6H [facility]; Protocol Last Infusion: 07/21/22 06:05 Dose: Infused Labetalol HCl (Labetalol 5 Mg/Ml Ml) 0 mg IV Q2HP PRN PRN Reason: Hypertension Levetiracetam (Levetiracetam 500 Mg Tablet) 1,500 mg PO BID [facility] Last Admin: 07/21/22 10:34 Dose: 1,500 mg Lisinopril (Lisinopril 10 Mg Tablet) 10 mg PO QDAY [facility] Last Admin: 07/21/22 10:34 Dose: 10 mg Nicotine (Nicotine 21 Mg Patch) 21 mg TOPICAL DAILY@0900 [facility] Last Admin: 07/21/22 10:37 Dose: 21 mg Olanzapine (Olanzapine 5 Mg Tablet) 10 mg PO HS [facility] Last Admin: 07/20/22 21:24 Dose: 10 mg Ondansetron HCl (Ondansetron 4 Mg/2 Ml Vial) 4 mg IV Q4HP PRN PRN Reason: Nausea And Vomiting Last Admin: 07/18/22 21:16 Dose: 4 mg Polyethylene Glycol (Polyethylene Glycol 3350 17 Gm Packet) 17 gm PO DAILYP PRN PRN Reason: Constipation Last Admin: 07/20/22 03:47 Dose: 17 gm Potassium Chloride (Potassium Chloride 20 Meq Tablet) 40 meq PO UD PRN PRN Reason: Potssium is 3-3.5 Potassium Chloride (Potassium Chloride 20 Meq Tablet) 40 meq PO UD PRN PRN Reason: Potassium < 3 Senna (Sennosides 1 Tablet) 2 tab PO DAILYP PRN PRN Reason: Constipation Sertraline HCl (Sertraline 50 Mg Tablet) 50 mg PO DAILY [facility] Last Admin: 07/21/22 10:34 Dose: 50 mg Sodium Chloride (0.9 % Sodium Chloride 10 Ml Syringe) 10 ml IV Q8 [facility] Last Admin: 07/21/22 05:34 Dose: 10 ml Trazodone HCl (Trazodone Hcl 50 Mg Tablet) 50 mg PO HS PRN PRN Reason: Insomnia A/P Assessment and plan (1) Methamphetamine abuse: Status: Acute (2) Cellulitis of left leg: Status: Acute (3) Coagulase negative Staphylococcus bacteremia: Status: Acute (4) Seizure: Status: Acute (5) Essential hypertension: Status: Acute (6) Major depressive disorder without psychotic features: Status: Acute Narrative A/P Narrative: Assessment and Plans: 1. Left lower extremity cellulitis: Wound culture: Strep pyogenes Finished Clindamycin Zosyn IV for 2 week, okay to switch to oral antibiotics at time of discharge Wound care team for wound care cbc w/ auto diff in the morning to trend WBC 2. Coagulase negative staph bacteremia: 2D echocardiogram no obvious valvular vegetations Repeat blood cultures no growth to date Zosyn IV for 2 week, okay to switch to oral antibiotics at time of discharge 3. Major depressive disorder without psychotic features: Request tele-psychiatry for reconsultation Resume Zoloft scheduled Resume Trazodone HS PRN insomnia Patient was being evaluated by telemetry psych who deemed the patient homicidal and recommend involuntary psychiatric facility placement. They also state that the patient would not be allowed to leave AMA. They also recommend adding Zyprexa 10 Mg nightly scheduled. Earlier this morning patient was being evaluated by mental health service and now they deemed the patient not at risk of suicidal or homicidal behavior. The patient's does not qualify for involuntary psychiatric facility admissions. Patient could leave AMA if he chooses to. 4. h/o seizure: Continue Keppra 5. Essential hypertension: Norvasc Lisinopril 6. Methamphetamine abuse: Continue to monitor GI ppx: Not currently indicated DVT ppx: Lovenox Code status: Full Prognosis: guarded Disposition: inpatient med surg Plan of Treatment: Plan: Local wound care. See wound care orders entered. if d/c see again f/u at wound clinic in ONE week. Time Spent With Patient Time: Total time spent is greater than 50% in coordination of care (as documented) at patient's floor/unit and/or counseling patient: Subsequent: Total time with patient: 35 - 49 minutes QUALITY Stroke Symptom Onset Unknown: No VTE Deep Vein Thrombosis/Pulmonary Embolism Present on Admission: No
[2022-07-21] MEDS ORDERED: CLINDAMYCIN 600 MG/50 ML NS BAG IV SCH (14:00)
[2022-07-21] MEDS ORDERED: CLINDAMYCIN IN 0.9 % SOD CHLOR 600 MG/50 ML BAG IV SCH (14:00)
[2022-07-21] MEDS: hydrALAZINE 20 MG/ML VIAL IV PRN ×2 (17:11→22:07)
[2022-07-21] MEDS: OLANZapine 5 MG TABLET PO SCH (20:36)
[2022-07-22] MEDS: PIPERACILLIN SODIUM/TAZOBACTAM 3.375 GM in DEXTROSE 5% IN WATER 50 ML IV SCH ×2 (00:21→06:06)
[2022-07-22] MEDS: 0.9 % SODIUM CHLORIDE 10 ML SYRINGE IV SCH ×3 (06:08→20:38)
[2022-07-22 06:53] LABS: Basophils # (Auto) 0.09 K/mcL (0.00-0.30); Basophils % (Auto) 0.8 % (0.0-2.0); Eosinophils # (Auto) 0.41 K/mcL (0.00-0.70); Eosinophils % (Auto) 3.6 % (0.0-7.0); Hematocrit 36.3 % (40.1-51.0); Hemoglobin 11.8 g/dL (13.7-17.5); Lymphocytes # (Auto) 1.74 K/mcL (1.50-4.80); Lymphocytes % (Auto) 15.2 % (15.5-49.0); Mean Cell Volume 88.8 fL (80.0-100.0); Mean Corpuscular HGB Conc 32.5 g/dL (31.0-36.0); Mean Platelet Volume 10.8 fL (8.8-12.5); Monocytes # (Auto) 0.61 K/mcL (0.10-0.90); Monocytes % (Auto) 5.3 % (1.0-12.0); Neutrophils % (Auto) 71.3 % (38.0-78.0); Platelet Count 338 K/mcL (140-440); RBC 4.09 M/mcL (4.63-6.08); Red Cell Distribution Width 13.7 % (11.5-14.5); WBC 11.5 K/mcL (4.5-11.0)
[2022-07-22 06:55] LABS: ALT/SGPT 18 U/L (<40); AST/SGOT 28 U/L (<40); Albumin 2.9 gm/dL (3.2-5.2); Albumin/Globulin Ratio 0.8 (1.0-2.3); Alkaline Phosphatase 140 U/L (39-117); Bilirubin,Total 0.3 mg/dL (0.1-1.0); Blood Urea Nitrogen 11 mg/dL (6-20); Calcium 8.5 mg/dL (8.6-10.4); Carbon Dioxide 22 mmol/L (22-30); Chloride 104 mmol/L (96-108); Globulin 3.8 gm/dL (2.2-3.7); Glomerular Filtration Rate 107; Glucose 103 mg/dL (70-105)
--- NOTE | 2022-07-22 09:17 | General Surgery Progress Note ---
SUBJECTIVE Subjective Patient information: Note initiated : 07/22/22 at 9:10 am Service Date, if different from initiated Date: [] Patient: Jabier Hubbard 47 y/o M admitted on 07/16/22 for Fever, Cellulitis, penile bleeding. Chief Complaint: [] Additional PMFSH (Level 3 Only): Patient seen with Romelia Whipple RNoyster preparer Nurse Environmental Engineering Professor. Patient eating breakfast. Conversational. Cooperative. Constitutional Vitals: Vital Signs Temp Pulse Resp BP Pulse Ox O2 Del Method O2 Flow Rate 97.7 F 82 22 171/104 95 Room Air 0 07/22/22 08:00 07/22/22 08:00 07/22/22 08:00 07/22/22 08:00 07/22/22 08:00 07/22/22 08:00 07/16/22 04:01 Period Temp Pulse Resp BP Sys/Long Pulse Ox O2 Del Method O2 Flow Rate Last 24 Hr 97.4 F-98.2 F 69-89 16-24 131-171/80-104 94-97 Room Air-Room Air Intake and Output 07/21/22 07/22/22 07/22/22 19:59 03:59 11:59 Intake Total 1150 580 50 Output Total 400 750 Balance 750 580 -700 Weight 254 lb 4.8 oz Intake & Output: Intake & Output 07/21/22 07/22/22 07/22/22 19:59 03:59 11:59 Intake Total 1150 580 50 Output Total 400 750 Balance 750 580 -700 Weight 254 lb 4.8 oz Intake: IV 100 50 50 Zosyn 3.375 gm In Dextrose 5% 100 50 50 in Water 50 ml @ 100 mls/hr IV Q6H [facility] Rx#:[id number] Oral 1050 530 Output: Void Amount 400 750 Other: Meal Lunch Dinner Breakfast Percent of Meal Consumed 100% 100% 100% Feeding Ability Independent Assist with Tray Set Up Urine Appearance Clear Clear Urine Color Yellow Yellow Stool Size Moderate Moderate Stool Color Brown Brown Stool Consistency Liquid Liquid # Bowel Movements 1 1 Exam: AVSS. Unremarkable GENNA. LEFT leg dressing CDI Patient has intact sensations both feet. Dry callused skin LEFT anterior mid plantar foot is demarcating well. Patient says that he had a water blister, It popped and left dry skin. LEFT proximal leg negative for signs of acute inflammation. A/P Narrative A/P Narrative: Assessment: Satisfactory progress from wound care point of view. Plan of Treatment: Plan: CONTINUE ongoing local wound care. if d/c see again f/u at wound clinic in ONE week. Time Spent With Patient Time: Total time spent is greater than 50% in coordination of care (as documented) at patient's floor/unit and/or counseling patient:
[2022-07-22] MEDS: levETIRAcetam 500 MG TABLET PO SCH ×2 (10:35→20:37)
[2022-07-22] MEDS: HYDROcodone/APAP 5/325MG TABLET PO PRN (10:36)
[2022-07-22] MEDS: ENOXAPARIN 40 MG/0.4 ML SYRINGE SQ SCH (10:36)
[2022-07-22] MEDS: LISINOPRIL 10 MG TABLET PO SCH (10:37)
[2022-07-22] MEDS: amLODIPine 5 MG TABLET PO SCH (10:37)
[2022-07-22] MEDS: DOCUSATE SODIUM 100 MG CAPSULE PO SCH ×2 (10:37→20:38)
[2022-07-22] MEDS: SERTRALINE 50 MG TABLET PO SCH (10:37)
[2022-07-22] MEDS: NICOTINE 21 MG PATCH TOPICAL SCH (10:37)
--- NOTE | 2022-07-22 11:24 | Internal Med Progress Note ---
SUBJECTIVE Subjective Patient information: Note initiated : 07/22/22 at 11:20 am Service Date, if different from initiated Date: [] Patient: Jabier Hubbard a 47 y/o M admitted on 07/16/22 for Fever, Cellulitis, penile bleeding. Chief Complaint: [] Interval history: Mr. Hubbard is a 47 year old M Here with left leg redness and swelling. fever and hematuria concerned he may have kidney stones. Patient recently moved down from [place] to help with his daughter's probation. 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 His girlfriend told him he had to make a decision between her and her family and his daughter so he decided to stay in [place]. Patient states about 3 weeks ago he received a spider bite to the left lateral lower leg. He said it was improving however he says he noticed that after he went to the [facility] health and welfare office to get food stamps and when he came home sometime he noticed that he was increasingly red and swollen and painful. He also complains of productive cough of thick yellow sputum over the past 2 to 3 days. Has a chronic cough no change. He is also complained of fevers and chills and nausea but no vomiting. Patient has not been on his blood pressure medications or Keppra for the past 3 months because he ran out and does not have a primary care doctor anymore Patient uses methamphetamine, smokes and denies IV use. Says it helps with his chronic pain. In the ED he was evaluated in the did not appear to be any fluctuance or drainage, abscess. X-ray showed no osteo. Patient was tachycardic and tachypneic and febrile. CT abdomen pelvis showed nonobstructing kidney stones on the left. Showed some perinephric stranding around both kidneys that was nonspecific with a differential of chronic scar versus inflammation. Patient does not have any flank pain and UA unconcerning for infection. In the ED they placed a Philippe and immediately received blood and blood clots into the bag which is now clearing up. Procalcitonin elevated at 0.7 Patient started on Vanco and Rocephin in the ED. 07/17 Patient drowsy. Complaining of back pain and leg pain. One of the blood cultures are positive for gram-positive cocci in clusters in anaerobic bottle of set. Leukocytosis still high but improving. Hyponatremia present. BUN and creatinine /.3. Hypophosphatemia and hypomagnesemia. will try heat pad for back. 07/18 Patient complains of headache and leg pain. But denies any nausea today. States he slept better. Leukocytosis improving. Patient still febrile overnight but fever curve improving. Hypokalemia. Renal function improving. Low Phos , mag improving. 07/19 Patient complains of poor sleep headache nausea vomiting. Patient states his left leg is more painful. CT of the leg showed cellulitis but no deeper infection or abscess. Patient leg does not look more swollen although he has been on IV fluids and off his diuretics. Renal function has been much improved we will give albumin with Lasix given his low albumin and elevated leg. Strep pyogenes on cultures and will give clindamycin for toxin production. 07/20: 2D echocardiogram did not show any obvious valvular vegetations. Repeat blood culture no growth to date. Patient has been afebrile overnight. Patient denies having any more homicidal or suicidal ideations or asked. No self-harm behavior this morning. With starting Zoloft and trazodone in the morning and at bedtime, respectively, as per telepsych recommendations. We will request telepsych to see the patient again today. Removed morphine. Remove Philippe catheter. Continue IV antibiotics with Zosyn and clindamycin for bacteremia and left leg cellulitis, respectively. Clindamycin will be finished by tomorrow while we will do 2 weeks total of antibiotics for bacteremia, will do IV Zosyn for the time being and will switch to oral antibiotics at time of discharge. 07/21: Patient was being evaluated by telemetry psych who deemed the patient homicidal and recommend involuntary psychiatric facility placement. They also state that the patient would not be allowed to leave AMA. They also recommend adding Zyprexa 10 Mg nightly scheduled. Earlier this morning patient was being evaluated by mental health service and now they deemed the patient not at risk of suicidal or homicidal behavior. The patient's does not qualify for involuntary psychiatric facility admissions. Patient could leave AMA if he chooses to. Patient is currently sleeping very sound. 07/22: There was no major overnight events. No homicidal or suicidal attempt reported. Patient is currently resting but is awake and alert. Wound care team also did dressing change earlier this morning and reported improving appearance. Patient is coming of light pain of the left lower extremities. He denies any fever or chills or diaphoresis. Good appetite. We will switch the antibiotics from Zosyn to Rocephin. Continue Zyprexa and Zoloft scheduled, and Trazodone HS PRN insomnia. Continue routine wound care daily. Overall condition stable. Continue 1:1 sitter. Constitutional Vitals: Vital Signs Temp Pulse Resp BP Pulse Ox O2 Del Method O2 Flow Rate 36.5 C 82 22 171/104 95 Room Air 0 07/22/22 08:00 07/22/22 08:00 07/22/22 08:00 07/22/22 08:00 07/22/22 08:00 07/22/22 08:00 07/16/22 04:01 Period Temp Pulse Resp BP Sys/Long Pulse Ox O2 Del Method O2 Flow Rate Last 24 Hr 36.3 C-36.8 C 69-89 16-24 131-171/80-104 94-97 Room Air-Room Air Intake and Output 07/21/22 07/22/22 07/22/22 19:59 03:59 11:59 Intake Total 1150 580 50 Output Total 400 750 Balance 750 580 -700 Weight 115.349 kg 115.349 kg Patient Weight 07/23/22 03:59 Weight 115.349 kg Intake & Output: Intake & Output 07/21/22 07/22/22 07/22/22 19:59 03:59 11:59 Intake Total 1150 580 50 Output Total 400 750 Balance 750 580 -700 Weight 115.349 kg 115.349 kg Intake: IV 100 50 50 Zosyn 3.375 gm In Dextrose 5% 100 50 50 in Water 50 ml @ 100 mls/hr IV Q6H [facility] Rx#:[id number] Oral 1050 530 Output: Void Amount 400 750 Other: Meal Lunch Dinner Breakfast Percent of Meal Consumed 100% 100% 100% Feeding Ability Independent Assist with Tray Set Up Urine Appearance Clear Clear Urine Color Yellow Yellow Stool Size Moderate Moderate Stool Color Brown Brown Stool Consistency Liquid Liquid # Bowel Movements 1 1 Exam: Sleeping Head Head exam: Present atraumatic and normal inspection Eye Eye exam: Present normal appearance ENT ENT exam: Present mucous membranes moist, normal exam and normal external ear exam Neck Neck exam: Present normal inspection Respiratory Respiratory exam: Present normal respiratory exam Cardiovascular Cardiovascular exam: Present normal rate and rhythm GI/Abdominal GI/Abdominal exam: Present normal bowel sounds Extremities Exam Extremities exam: Present full ROM; Absent normal inspection Additional comments: Left lower leg covered by wound dressing Back Exam Back exam: Present normal inspection Neurological Exam Neurological exam: Present alert and oriented X3 Skin Skin exam: Present intact and warm Additional comments: Left lower leg covered by wound dressing OBJ DATA Labs 07/22/22 05:21 07/22/22 05:21 Labs: Abnormal Lab Results 07/22/22 07/22/22 07/21/22 05:21 05:21 05:44 WBC 11.5 H RBC 4.09 L 3.94 L Hgb 11.8 L 11.7 L Hct 36.3 L 34.3 L Immature Gran % (Auto) 3.8 H 1.7 H Lymph % (Auto) 15.2 L 13.8 L Lymph # (Auto) 1.43 L Immature Gran # 0.44 H 0.18 H Absolute Neutrophils 8.16 H Calcium 8.5 L Alkaline Phosphatase 140 H C-Reactive Protein Albumin 2.9 L Globulin 3.8 H Albumin/Globulin Ratio 0.8 L Procalcitonin 07/21/22 07/20/22 07/20/22 05:36 05:55 05:54 WBC RBC Hgb Hct Immature Gran % (Auto) Lymph % (Auto) Lymph # (Auto) Immature Gran # Absolute Neutrophils Calcium 8.4 L Alkaline Phosphatase 129 H 136 H C-Reactive Protein Albumin 2.8 L 3.0 L Globulin Albumin/Globulin Ratio 0.8 L 0.9 L Procalcitonin 0.27 H 07/20/22 07/20/22 05:54 05:54 WBC RBC 3.87 L Hgb 11.3 L Hct 33.9 L Immature Gran % (Auto) 1.0 H Lymph % (Auto) 10.2 L Lymph # (Auto) 1.06 L Immature Gran # 0.10 H Absolute Neutrophils 8.08 H Calcium Alkaline Phosphatase C-Reactive Protein 10.00 H Albumin Globulin Albumin/Globulin Ratio Procalcitonin Meds: Medications Acetaminophen (Acetaminophen 325 Mg Tablet) 650 mg PO Q6HP PRN; Protocol PRN Reason: Per Pain Protocol/Fever > 101 Last Admin: 07/16/22 23:32 Dose: 650 mg Hydrocodone Bitart/Acetaminophen (Hydrocodone/Apap 5/325mg Tablet) 2 tab PO Q4- 6HP PRN; Protocol PRN Reason: PAIN LEVEL > 6 Last Admin: 07/22/22 10:36 Dose: 2 tab Albuterol/Ipratropium (Ipratropium/Albuterol 3 Ml Ampul.Neb) 3 ml NEB Q4HP PRN PRN Reason: Shortness Of Breath Amlodipine Besylate (Amlodipine 5 Mg Tablet) 5 mg PO QDAY [facility] Last Admin: 07/22/22 10:37 Dose: 5 mg Docusate Sodium (Docusate Sodium 100 Mg Capsule) 100 mg PO BID [facility] Last Admin: 07/22/22 10:37 Dose: Not Given Enoxaparin Sodium (Enoxaparin 40 Mg/0.4 Ml Syringe) 40 mg SQ DAILY [facility] Last Admin: 07/22/22 10:36 Dose: 40 mg Haloperidol Lactate (Haloperidol Lactate 5 Mg/Ml Vial) 5 mg IV Q6HP PRN PRN Reason: Agitation Hydralazine HCl (Hydralazine 20 Mg/Ml Vial) 0 mg IV Q2HP PRN PRN Reason: Hypertension Last Admin: 07/21/22 22:07 Dose: 10 mg Potassium Chloride 40 meq/ (Dextrose) 520 mls @ 130 mls/hr IV UD PRN PRN Reason: Potassium < 3 Magnesium Sulfate (Magnesium Sulfate) 2 gm in 50 mls @ 50 mls/hr IV UD PRN PRN Reason: Magnesium </= 1.6 Ceftriaxone Sodium 2 gm/ (Dextrose) 50 mls @ 100 mls/hr IV Q24H [facility] Labetalol HCl (Labetalol 5 Mg/Ml Ml) 0 mg IV Q2HP PRN PRN Reason: Hypertension Levetiracetam (Levetiracetam 500 Mg Tablet) 1,500 mg PO BID [facility] Last Admin: 07/22/22 10:35 Dose: 1,500 mg Lisinopril (Lisinopril 10 Mg Tablet) 10 mg PO QDAY [facility] Last Admin: 07/22/22 10:37 Dose: 10 mg Nicotine (Nicotine 21 Mg Patch) 21 mg TOPICAL DAILY@0900 [facility] Last Admin: 07/22/22 10:37 Dose: 21 mg Olanzapine (Olanzapine 5 Mg Tablet) 10 mg PO HS [facility] Last Admin: 07/21/22 20:36 Dose: 10 mg Ondansetron HCl (Ondansetron 4 Mg/2 Ml Vial) 4 mg IV Q4HP PRN PRN Reason: Nausea And Vomiting Last Admin: 07/18/22 21:16 Dose: 4 mg Polyethylene Glycol (Polyethylene Glycol 3350 17 Gm Packet) 17 gm PO DAILYP PRN PRN Reason: Constipation Last Admin: 07/20/22 03:47 Dose: 17 gm Potassium Chloride (Potassium Chloride 20 Meq Tablet) 40 meq PO UD PRN PRN Reason: Potssium is 3-3.5 Potassium Chloride (Potassium Chloride 20 Meq Tablet) 40 meq PO UD PRN PRN Reason: Potassium < 3 Senna (Sennosides 1 Tablet) 2 tab PO DAILYP PRN PRN Reason: Constipation Sertraline HCl (Sertraline 50 Mg Tablet) 50 mg PO DAILY [facility] Last Admin: 07/22/22 10:37 Dose: 50 mg Sodium Chloride (0.9 % Sodium Chloride 10 Ml Syringe) 10 ml IV Q8 [facility] Last Admin: 07/22/22 06:08 Dose: 10 ml Trazodone HCl (Trazodone Hcl 50 Mg Tablet) 50 mg PO HS PRN PRN Reason: Insomnia A/P Assessment and plan (1) Methamphetamine abuse: Status: Acute (2) Cellulitis of left leg: Status: Acute (3) Coagulase negative Staphylococcus bacteremia: Status: Acute (4) Seizure: Status: Acute (5) Essential hypertension: Status: Acute (6) Major depressive disorder without psychotic features: Status: Acute Narrative A/P Narrative: Assessment and Plans: 1. Left lower extremity cellulitis: Wound culture: Strep pyogenes Finished Clindamycin Zosyn-->Rocephilyn okmaria ines to switch to oral antibiotics at time of discharge Wound care team for wound care daily cbc w/ auto diff in the morning to trend WBC 2. Coagulase negative staph bacteremia: 2D echocardiogram no obvious valvular vegetations Repeat blood cultures no growth to date Zosyn-->Rocephin okay to switch to oral antibiotics at time of discharge 3. Major depressive disorder without psychotic features: Request tele-psychiatry for reconsultation Resume Zoloft scheduled Resume Trazodone HS PRN insomnia Patient was being evaluated by telemetry psych who deemed the patient homicidal and recommend involuntary psychiatric facility placement. They also state that the patient would not be allowed to leave AMA. They also recommend adding Zyprexa 10 Mg nightly scheduled. Earlier this morning patient was being evaluated by mental health service and now they deemed the patient not at risk of suicidal or homicidal behavior. The patient's does not qualify for involuntary psychiatric facility admissions. Patient could leave AMA if he chooses to. 1:1 sitter 4. h/o seizure: Continue Keppra 5. Essential hypertension: Norvasc Lisinopril 6. Methamphetamine abuse: Continue to monitor GI ppx: Not currently indicated DVT ppx: Lovenox Code status: Full Prognosis: Stable Disposition: inpatient med surg Plan of Treatment: Plan: CONTINUE ongoing local wound care. if d/c see again f/u at wound clinic in ONE week. Time Spent With Patient Time: Total time spent is greater than 50% in coordination of care (as documented) at patient's floor/unit and/or counseling patient: Subsequent: Total time with patient: 35 - 49 minutes QUALITY Stroke Symptom Onset Unknown: No VTE Deep Vein Thrombosis/Pulmonary Embolism Present on Admission: No
[2022-07-22] MEDS: cefTRIAXone 2 GM in DEXTROSE 5% IN WATER 50 ML IV SCH (12:35)
[2022-07-22] MEDS: hydrALAZINE 20 MG/ML VIAL IV PRN ×2 (19:23→21:45)
[2022-07-22] MEDS: OLANZapine 5 MG TABLET PO SCH (20:38)
[2022-07-23] MEDS: 0.9 % SODIUM CHLORIDE 10 ML SYRINGE IV SCH ×2 (05:40→14:27)
[2022-07-23 06:56] LABS: Basophils # (Auto) 0.12 K/mcL (0.00-0.30); Basophils % (Auto) 0.9 % (0.0-2.0); Eosinophils # (Auto) 0.42 K/mcL (0.00-0.70); Eosinophils % (Auto) 3.3 % (0.0-7.0); Hematocrit 39.3 % (40.1-51.0); Hemoglobin 13.2 g/dL (13.7-17.5); Lymphocytes # (Auto) 2.16 K/mcL (1.50-4.80); Lymphocytes % (Auto) 16.9 % (15.5-49.0); Mean Cell Volume 88.7 fL (80.0-100.0); Mean Corpuscular HGB Conc 33.6 g/dL (31.0-36.0); Mean Platelet Volume 9.7 fL (8.8-12.5); Monocytes # (Auto) 0.63 K/mcL (0.10-0.90); Monocytes % (Auto) 4.9 % (1.0-12.0); Neutrophils % (Auto) 69.9 % (38.0-78.0); Platelet Count 423 K/mcL (140-440); RBC 4.43 M/mcL (4.63-6.08); Red Cell Distribution Width 13.8 % (11.5-14.5); WBC 12.8 K/mcL (4.5-11.0)
[2022-07-23 07:00] LABS: ALT/SGPT 22 U/L (<40); AST/SGOT 21 U/L (<40); Albumin 3.5 gm/dL (3.2-5.2); Albumin/Globulin Ratio 0.9 (1.0-2.3); Alkaline Phosphatase 143 U/L (39-117); Bilirubin,Total 0.3 mg/dL (0.1-1.0); Blood Urea Nitrogen 10 mg/dL (6-20); Calcium 8.9 mg/dL (8.6-10.4); Carbon Dioxide 21 mmol/L (22-30); Chloride 105 mmol/L (96-108); Globulin 3.9 gm/dL (2.2-3.7); Glomerular Filtration Rate 107; Glucose 91 mg/dL (70-105)
[2022-07-23] MEDS: levETIRAcetam 500 MG TABLET PO SCH (09:12)
[2022-07-23] MEDS: LISINOPRIL 10 MG TABLET PO SCH (09:13)
[2022-07-23] MEDS: DOCUSATE SODIUM 100 MG CAPSULE PO SCH (09:13)
[2022-07-23] MEDS: amLODIPine 5 MG TABLET PO SCH (09:13)
[2022-07-23] MEDS: SERTRALINE 50 MG TABLET PO SCH (09:13)
[2022-07-23] MEDS: cefTRIAXone 2 GM in DEXTROSE 5% IN WATER 50 ML IV SCH (09:13)
[2022-07-23] MEDS: ENOXAPARIN 40 MG/0.4 ML SYRINGE SQ SCH (09:13)
[2022-07-23] MEDS: NICOTINE 21 MG PATCH TOPICAL SCH (09:30)
--- NOTE | 2022-07-23 12:05 | Internal Med Progress Note ---
SUBJECTIVE Subjective Patient information: Note initiated : 07/23/22 at 12:02 pm Service Date, if different from initiated Date: [] Patient: Jabier Hubbard a 47 y/o M admitted on 07/16/22 for Fever, Cellulitis, penile bleeding. Chief Complaint: [] Interval history: Mr. Hubbard is a 47 year old M Here with left leg redness and swelling. fever and hematuria concerned he may have kidney stones. Patient recently moved down from [facility] to help with his daughter's probation. 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 His girlfriend told him he had to make a decision between her and her family and his daughter so he decided to stay in [place]. Patient states about 3 weeks ago he received a spider bite to the left lateral lower leg. He said it was improving however he says he noticed that after he went to the [facility] health and welfare office to get food stamps and when he came home sometime he noticed that he was increasingly red and swollen and painful. He also complains of productive cough of thick yellow sputum over the past 2 to 3 days. Has a chronic cough no change. He is also complained of fevers and chills and nausea but no vomiting. Patient has not been on his blood pressure medications or Keppra for the past 3 months because he ran out and does not have a primary care doctor anymore Patient uses methamphetamine, smokes and denies IV use. Says it helps with his chronic pain. In the ED he was evaluated in the did not appear to be any fluctuance or drainage, abscess. X-ray showed no osteo. Patient was tachycardic and tachypneic and febrile. CT abdomen pelvis showed nonobstructing kidney stones on the left. Showed some perinephric stranding around both kidneys that was nonspecific with a differential of chronic scar versus inflammation. Patient does not have any flank pain and UA unconcerning for infection. In the ED they placed a Philippe and immediately received blood and blood clots into the bag which is now clearing up. Procalcitonin elevated at 0.7 Patient started on Vanco and Rocephin in the ED. 07/17 Patient drowsy. Complaining of back pain and leg pain. One of the blood cultures are positive for gram-positive cocci in clusters in anaerobic bottle of set. Leukocytosis still high but improving. Hyponatremia present. BUN and creatinine /.3. Hypophosphatemia and hypomagnesemia. will try heat pad for back. 07/18 Patient complains of headache and leg pain. But denies any nausea today. States he slept better. Leukocytosis improving. Patient still febrile overnight but fever curve improving. Hypokalemia. Renal function improving. Low Phos , mag improving. 07/19 Patient complains of poor sleep headache nausea vomiting. Patient states his left leg is more painful. CT of the leg showed cellulitis but no deeper infection or abscess. Patient leg does not look more swollen although he has been on IV fluids and off his diuretics. Renal function has been much improved we will give albumin with Lasix given his low albumin and elevated leg. Strep pyogenes on cultures and will give clindamycin for toxin production. 07/20: 2D echocardiogram did not show any obvious valvular vegetations. Repeat blood culture no growth to date. Patient has been afebrile overnight. Patient denies having any more homicidal or suicidal ideations or asked. No self-harm behavior this morning. With starting Zoloft and trazodone in the morning and at bedtime, respectively, as per telepsych recommendations. We will request telepsych to see the patient again today. Removed morphine. Remove Philippe catheter. Continue IV antibiotics with Zosyn and clindamycin for bacteremia and left leg cellulitis, respectively. Clindamycin will be finished by tomorrow while we will do 2 weeks total of antibiotics for bacteremia, will do IV Zosyn for the time being and will switch to oral antibiotics at time of discharge. 07/21: Patient was being evaluated by telemetry psych who deemed the patient homicidal and recommend involuntary psychiatric facility placement. They also state that the patient would not be allowed to leave AMA. They also recommend adding Zyprexa 10 Mg nightly scheduled. Earlier this morning patient was being evaluated by mental health service and now they deemed the patient not at risk of suicidal or homicidal behavior. The patient's does not qualify for involuntary psychiatric facility admissions. Patient could leave AMA if he chooses to. Patient is currently sleeping very sound. 07/22: There was no major overnight events. No homicidal or suicidal attempt reported. Patient is currently resting but is awake and alert. Wound care team also did dressing change earlier this morning and reported improving appearance. Patient is coming of light pain of the left lower extremities. He denies any fever or chills or diaphoresis. Good appetite. We will switch the antibiotics from Zosyn to Rocephin. Continue Zyprexa and Zoloft scheduled, and Trazodone HS PRN insomnia. Continue routine wound care daily. Overall condition stable. Continue 1:1 sitter. 07/23: There was no major overnight events. No homicidal or suicidal attempt reported. Patient is sleeping but is applicable. He had breakfast and he went to the bathroom without any problem. Wound care team also did dressing change earlier this morning and reported improving appearance. Continue IV Rocephin. Continue Zyprexa and Zoloft scheduled, and Trazodone HS PRN insomnia. Continue routine wound care daily. Overall condition stable. Continue 1:1 sitter. Constitutional Vitals: Vital Signs Temp Pulse Resp BP Pulse Ox O2 Del Method O2 Flow Rate 37.1 C 85 16 160/87 97 Room Air 0 07/23/22 08:00 07/23/22 08:00 07/23/22 08:00 07/23/22 08:00 07/23/22 08:00 07/23/22 08:00 07/16/22 04:01 Period Temp Pulse Resp BP Sys/Long Pulse Ox O2 Del Method O2 Flow Rate Last 24 Hr 36.4 C-37.1 C 71-98 16-22 135-174/82-94 95-97 Room Air-Room Air Intake and Output 07/23/22 07/23/22 07/23/22 03:59 11:59 19:59 Intake Total 560 530 Output Total 1300 400 Balance -740 130 Intake & Output: Intake & Output 07/23/22 07/23/22 07/23/22 03:59 11:59 19:59 Intake Total 560 530 Output Total 1300 400 Balance -740 130 Intake: IV 50 Rocephin 2 gm In Dextrose 5% in 50 Water 50 ml @ 100 mls/hr IV Q24H [facility] Rx#:[id number] Oral 560 480 Output: Void Amount 1300 400 Other: Meal Breakfast Percent of Meal Consumed 100% Feeding Ability Independent Urine Appearance Clear Clear Urine Color Yellow Yellow # Voids 1 # Bowel Movements 1 Exam: Sleeping Head Head exam: Present atraumatic and normal inspection Eye Eye exam: Present normal appearance ENT ENT exam: Present mucous membranes moist, normal exam and normal external ear exam Neck Neck exam: Present normal inspection Respiratory Respiratory exam: Present normal respiratory exam Cardiovascular Cardiovascular exam: Present normal rate and rhythm GI/Abdominal GI/Abdominal exam: Present normal bowel sounds Extremities Exam Extremities exam: Absent normal inspection Additional comments: Left lower leg covered by wound dressing Back Exam Back exam: Present normal inspection Neurological Exam Neurological exam: Present alert and oriented X3 Skin Skin exam: Present intact and warm Additional comments: Left lower leg covered by wound dressing OBJ DATA Labs 07/23/22 05:00 07/23/22 06:08 Labs: Abnormal Lab Results 07/23/22 07/23/22 07/22/22 06:08 05:00 05:21 WBC 12.8 H RBC 4.43 L Hgb 13.2 L Hct 39.3 L Immature Gran % (Auto) 4.1 H Lymph % (Auto) Lymph # (Auto) Immature Gran # 0.53 H Absolute Neutrophils 8.92 H Carbon Dioxide 21 L Calcium 8.5 L Alkaline Phosphatase 143 H 140 H Albumin 2.9 L Globulin 3.9 H 3.8 H Albumin/Globulin Ratio 0.9 L 0.8 L 07/22/22 07/21/22 07/21/22 05:21 05:44 05:36 WBC 11.5 H RBC 4.09 L 3.94 L Hgb 11.8 L 11.7 L Hct 36.3 L 34.3 L Immature Gran % (Auto) 3.8 H 1.7 H Lymph % (Auto) 15.2 L 13.8 L Lymph # (Auto) 1.43 L Immature Gran # 0.44 H 0.18 H Absolute Neutrophils 8.16 H Carbon Dioxide Calcium 8.4 L Alkaline Phosphatase 129 H Albumin 2.8 L Globulin Albumin/Globulin Ratio 0.8 L Meds: Medications Acetaminophen (Acetaminophen 325 Mg Tablet) 650 mg PO Q6HP PRN; Protocol PRN Reason: Per Pain Protocol/Fever > 101 Last Admin: 07/16/22 23:32 Dose: 650 mg Hydrocodone Bitart/Acetaminophen (Hydrocodone/Apap 5/325mg Tablet) 2 tab PO Q4- 6HP PRN; Protocol PRN Reason: PAIN LEVEL > 6 Last Admin: 07/22/22 10:36 Dose: 2 tab Albuterol/Ipratropium (Ipratropium/Albuterol 3 Ml Ampul.Neb) 3 ml NEB Q4HP PRN PRN Reason: Shortness Of Breath Amlodipine Besylate (Amlodipine 5 Mg Tablet) 5 mg PO QDAY [facility] Last Admin: 07/23/22 09:13 Dose: 5 mg Docusate Sodium (Docusate Sodium 100 Mg Capsule) 100 mg PO BID [facility] Last Admin: 07/23/22 09:13 Dose: 100 mg Enoxaparin Sodium (Enoxaparin 40 Mg/0.4 Ml Syringe) 40 mg SQ DAILY [facility] Last Admin: 07/23/22 09:13 Dose: 40 mg Haloperidol Lactate (Haloperidol Lactate 5 Mg/Ml Vial) 5 mg IV Q6HP PRN PRN Reason: Agitation Hydralazine HCl (Hydralazine 20 Mg/Ml Vial) 0 mg IV Q2HP PRN PRN Reason: Hypertension Last Admin: 07/22/22 21:45 Dose: 10 mg Potassium Chloride 40 meq/ (Dextrose) 520 mls @ 130 mls/hr IV UD PRN PRN Reason: Potassium < 3 Magnesium Sulfate (Magnesium Sulfate) 2 gm in 50 mls @ 50 mls/hr IV UD PRN PRN Reason: Magnesium </= 1.6 Ceftriaxone Sodium 2 gm/ (Dextrose) 50 mls @ 100 mls/hr IV Q24H [facility] Last Infusion: 07/23/22 09:56 Dose: Infused Labetalol HCl (Labetalol 5 Mg/Ml Ml) 0 mg IV Q2HP PRN PRN Reason: Hypertension Last Admin: 07/22/22 12:35 Dose: 10 mg Levetiracetam (Levetiracetam 500 Mg Tablet) 1,500 mg PO BID [facility] Last Admin: 07/23/22 09:12 Dose: 1,500 mg Lisinopril (Lisinopril 10 Mg Tablet) 10 mg PO QDAY [facility] Last Admin: 07/23/22 09:13 Dose: 10 mg Nicotine (Nicotine 21 Mg Patch) 21 mg TOPICAL DAILY@0900 [facility] Last Admin: 07/23/22 09:30 Dose: 21 mg Olanzapine (Olanzapine 5 Mg Tablet) 10 mg PO HS [facility] Last Admin: 07/22/22 20:38 Dose: 10 mg Ondansetron HCl (Ondansetron 4 Mg/2 Ml Vial) 4 mg IV Q4HP PRN PRN Reason: Nausea And Vomiting Last Admin: 07/18/22 21:16 Dose: 4 mg Polyethylene Glycol (Polyethylene Glycol 3350 17 Gm Packet) 17 gm PO DAILYP PRN PRN Reason: Constipation Last Admin: 07/20/22 03:47 Dose: 17 gm Potassium Chloride (Potassium Chloride 20 Meq Tablet) 40 meq PO UD PRN PRN Reason: Potssium is 3-3.5 Potassium Chloride (Potassium Chloride 20 Meq Tablet) 40 meq PO UD PRN PRN Reason: Potassium < 3 Senna (Sennosides 1 Tablet) 2 tab PO DAILYP PRN PRN Reason: Constipation Sertraline HCl (Sertraline 50 Mg Tablet) 50 mg PO DAILY [facility] Last Admin: 07/23/22 09:13 Dose: 50 mg Sodium Chloride (0.9 % Sodium Chloride 10 Ml Syringe) 10 ml IV Q8 [facility] Last Admin: 07/23/22 05:40 Dose: 10 ml Trazodone HCl (Trazodone Hcl 50 Mg Tablet) 50 mg PO HS PRN PRN Reason: Insomnia A/P Assessment and plan (1) Methamphetamine abuse: Status: Acute (2) Cellulitis of left leg: Status: Acute (3) Coagulase negative Staphylococcus bacteremia: Status: Acute (4) Seizure: Status: Acute (5) Essential hypertension: Status: Acute (6) Major depressive disorder without psychotic features: Status: Acute Narrative A/P Narrative: Assessment and Plans: 1. Left lower extremity cellulitis: Wound culture: Strep pyogenes Finished Clindamycin Continue Rocephin, okay to switch to oral antibiotics at time of discharge Wound care team for wound care daily. Follow up with wound care clinic upon hospital discharge cbc w/ auto diff in the morning to trend WBC 2. Coagulase negative staph bacteremia: 2D echocardiogram no obvious valvular vegetations Repeat blood cultures no growth to date Continue Rocephin, okay to switch to oral antibiotics at time of discharge 3. Major depressive disorder without psychotic features: Request tele-psychiatry for reconsultation Resume Zoloft scheduled Resume Trazodone HS PRN insomnia Patient was being evaluated by telemetry psych who deemed the patient homicidal and recommend involuntary psychiatric facility placement. They also state that the patient would not be allowed to leave AMA. They also recommend adding Zyprexa 10 Mg nightly scheduled. Earlier this morning patient was being evaluated by mental health service and now they deemed the patient not at risk of suicidal or homicidal behavior. The patient's does not qualify for involuntary psychiatric facility admissions. Patient could leave AMA if he chooses to. 1:1 sitter 4. h/o seizure: Continue Keppra 5. Essential hypertension: Norvasc Lisinopril 6. Methamphetamine abuse: Continue to monitor GI ppx: Not currently indicated DVT ppx: Lovenox Code status: Full Prognosis: Stable Disposition: inpatient med surg Time Spent With Patient Time: Total time spent is greater than 50% in coordination of care (as documented) at patient's floor/unit and/or counseling patient: Subsequent: Total time with patient: 35 - 49 minutes QUALITY Stroke Symptom Onset Unknown: No VTE Deep Vein Thrombosis/Pulmonary Embolism Present on Admission: No
[2022-07-23] MEDS: hydrALAZINE 20 MG/ML VIAL IV PRN (12:24)
--- NOTE | 2022-07-24 08:30 | Event Note ---
Event Note Event Note: Patient left AMA at the evening of 07/23/22.
[2022-07-27 13:14] LABS: Cannabinoid Confirmation Positive
== END 2022-07-23 15:02 | disposition left against medical advice (07) | DRG 872 ==
LOC: ED 03:55 → MEDSUR 10:40
PROVIDERS: ADMIT Internal Medicine; ATTEND Internal Medicine